=== PATIENT | female | born 1950 | race Caucasian/White ===

== ENCOUNTER → 2018-01-19 | Outpatient (CLI) | payer MEDICARE, OTHER ==
--- NOTE | 2018-01-19 17:02 | RAD ---
Right lower extremity venous Doppler 01/19/2018 6:00 PM Indication: Right leg pain Comparison: None available Technique: Sonographic evaluation of the right lower extremity venous system was performed utilizing grayscale, Doppler and spectral waveform analysis. Findings: Right: There is normal color Doppler, compressibility and spectral analysis involving the common femoral vein, superficial femoral vein, popliteal vein, posterior tibial vein and greater saphenous vein. Impression: No evidence for right lower extremity venous thrombosis.
== END | disposition home or self-care (01) ==
LOC: US 15:48
PROVIDERS: ATTEND Family Medicine
DX: M79.604 Pain in right leg (principal)
CPT/HCPCS: 93971

== ENCOUNTER 2020-06-15 15:03 | Inpatient (IN) | payer MEDICARE, OTHER ==
[~2020-06-15] VITALS: Ht 162.6 cm; Wt 59.4 kg
--- NOTE | 2020-06-15 15:24 | PHYS DOC ---
General Adult EDM: Chief Complaint: NEURO SYMPTOMS/DEFICITS HPI: HPI: 69-year-old female presents with difficulty with speech. The patient is able to make out words, but she cannot answer every question. When asked if she can understand me, she nods yes. She is able to get out some things. She is unable to tell me what time this started. She was able to walk in with her cane which she uses at baseline. She is moving all 4 extremities. No further history is available at this time. Review of Systems: Review of Systems: Constitutional: Denies fever Eyes: Unable to assess HENT: Denies sore throat Respiratory: Denies cough or shortness of breath Cardiovascular: Denies chest pain GI: Denies abdominal pain, nausea, vomiting : Denies dysuria Musculoskeletal: Denies pain Integument: Denies rash Neurologic: Denies headache. Has difficulty speaking Endocrine: Denies polyuria or polydipsia Lymphatic: Denies swollen glands Psychiatric: Denies depression or anxiety Heart Score: Risk Factors: Risk Factors: DM, Current or recent (<one month) smoker, HTN, HLP, family history of CAD, obesity. Risk Scores: Score 0 - 3: 2.5% MACE over next 6 weeks - Discharge Home Score 4 - 6: 20.3% MACE over next 6 weeks - Admit for Clinical Observation Score 7 - 10: 72.7% MACE over next 6 weeks - Early Invasive Strategies Physical Exam: PE: Constitutional: Well developed, well nourished, no acute distress, non-toxic appearance. [] HENT: Normocephalic, atraumatic, bilateral external ears normal, oropharynx moist, no oral exudates, nose normal. [] Eyes: PERRLA, EOMI, conjunctiva normal, no discharge. [] Neck: Normal range of motion, no tenderness, supple, no stridor. [] Cardiovascular: Heart rate regular rhythm, no murmur [] Lungs & Thorax: Bilateral breath sounds clear to auscultation [] Abdomen: Bowel sounds normal, soft, no tenderness, no masses, no pulsatile masses. [] Skin: Warm, dry, no erythema, no rash. [] Back: No tenderness, no CVA tenderness. [] Extremities: No tenderness, no cyanosis, no clubbing, ROM intact, no edema. [] Neurologic: See NIHSS[] Psychologic: Affect normal, judgement normal, mood normal. [] EKG: EKG: [] Radiology/Procedures: Radiology/Procedures: [] Impressions: EXAM: CT Head without IV contrast INDICATION: Reason: speech difficulty / Spl. Instructions: / History: TECHNIQUE: Multi-detector row CT images were obtained of the head without the use of IV contrast. All CT scans performed at this facility utilize dose optimization techniques as appropriate to the exam, including the following: Automated exposure control and adjustment of the mA and/or KV according to patient size (this includes techniques or standardized protocols for targeted exams where dose is indication/reason for exam). COMPARISON: None FINDINGS: BRAIN PARENCHYMA: No evidence of acute intraparenchymal hemorrhage or mass effect. There is loss of rodriguez-white differentiation in the superior posterior left frontal lobe near the precentral gyrus, suggestive of a chronic cortical infarct. More inferiorly, there is some loss of rodriguez-white differentiation in the left frontal lobe near the operculum near the inferior frontal gyrus that could represent a more subacute infarct. VENTRICLES & EXTRA-AXIAL SPACES: Ventricles are within normal limits. Basilar cisterns are patent. No pathologic extra-axial fluid collection or mass. ORBITS: Orbital contents are unremarkable. SINUSES: Visualized paranasal sinuses and mastoid air cells are clear. OSSEOUS & SOFT TISSUES: Calvarium and skull base are intact. IMPRESSION: 1. No acute intracranial hemorrhage or mass effect. 2. Loss of rodriguez-white differentiation in the left frontal lobe suggesting a chronic infarct with a possible acute to subacute component. Consider CTA head in further evaluation. FOR INTERNAL CODING PURPOSES Critical result: Findings discussed with LUKASZ GARCIA at 06/15/2020 3:32 PM. RESULT CODE: (C) Electronically signed by: Shoaib Harrison MD (06/15/2020 3:36 PM) [id number] DICTATED AND SIGNED BY: SHOAIB HARRISON MD DATE: 06/15/20 1536 CC: ZENAIDA ASTUDILLO MD; LUKASZ GARCIA DO ~ EXAM: CT Angiogram of the Head and Neck INDICATION: Reason: stroke, SLURRED SPEECH, CONFUSION / Spl. Instructions: / History: TECHNIQUE: CT images were obtained through the head per standard CTA protocol. Multiplanar and 3D reformatted images were generated from the CT dataset on an independent workstation. All CT scans performed at this facility utilize dose optimization techniques as appropriate to the exam, including the following: Automated exposure control and adjustment of the mA and/or KV according to patient size (this includes techniques or standardized protocols for targeted exams where dose is indication/reason for exam). IV CONTRAST: Administered COMPARISON: None FINDINGS: CTA HEAD: No high-grade large vessel stenosis, proximal or branch vessel occlusion, aneurysm, or vascular malformation. Atherosclerotic plaque in the right cavernous carotid artery is present, resulting in no high-grade stenosis. There is however a paucity of perfused smaller branch vessels in the left parietal region where subtle loss of rodriguez-white differentiation is apparent. ANTERIOR CIRCULATION: Anterior and middle cerebral arteries are widely patent. ANTERIOR COMMUNICATING ARTERY: Patent. POSTERIOR COMMUNICATING ARTERIES: Diminutive and not well seen. POSTERIOR CIRCULATION: Vertebral and basilar arteries are widely patent. Bilateral posterior inferior cerebellar arteries (PICAs), anterior inferior cerebellar arteries (AICAs), and superior cerebellar arteries (SCAs) are visualized and patent. OTHER: No abnormal brain parenchymal enhancement. The paranasal sinuses, mastoid air cells, and tympanic cavities are clear. NECK CTA: AORTA: 2 vessel configuration of arch. No dissection or acute aortic injury. Ectasia of the ascending thoracic aorta to 4.1 cm is present. No hemodynamically significant great vessel origin stenosis. RIGHT CAROTID: Common and internal carotid arteries are widely patent, without evidence of flow limiting stenosis or dissection. LEFT CAROTID: Common and internal carotid arteries are widely patent, without evidence of flow limiting stenosis or dissection. VERTEBRAL ARTERIES: Codominant. No evidence of dissection or flow limiting stenosis. SUBCLAVIAN ARTERIES:Subclavian arteries are patent without stenosis. SOFT TISSUES: Soft tissues are unremarkable. Lung apices show panlobular emphysema affecting the upper lobes the greatest extent. Coronary calcifications are incidentally noted. Where applicable, evaluation of ICA stenosis was performed using NASCET criteria, where the site of greatest stenosis is compared to the diameter of the ICA distal to the carotid bulb. IMPRESSION: 1. Findings suspicious for distal MCA branch vessel occlusion with paucity of perfusing vessels in the left parietal region and associated loss of rodriguez-white differentiation, compatible with an evolving acute to subacute infarct. 2. No significant stenosis in the cervical great vessels with ectasia of the ascending thoracic aorta 4.1 cm and bovine arch configuration noted. FOR INTERNAL CODING PURPOSES Critical result: Findings discussed with LUKASZ GARCIA at 06/15/2020 5:07 PM. RESULT CODE: (C) Electronically signed by: Shoaib Harrison MD (06/15/2020 5:12 PM) [id number] DICTATED AND SIGNED BY: SHOAIB HARRISON MD DATE: 06/15/201711 CC: ZENAIDA ASTUDILLO MD; LUKASZ GARCIA DO ~ Course & Med Decision Making: Course & Med Decision Making Pertinent Labs and Imaging studies reviewed. (See chart for details) I was able to speak with the patient's . He tells me that when the patient woke up this morning around 12:30 PM, she had the disorganized speech. She talks to him, but he cannot understand her. She took a shower on her own. Afterwards, she was trying to talk to him and her speech was still incomprehensible. He encouraged her to go to the emergency room. Her last known well was around 3 AM when she came home and went to bed after work. Patient has had a stroke recently 5 or 6 months ago. He believes she has some residual weakness on one side. Patient had been doing well for the last 4 days. Prior to that, she had been misplacing things and forgetting what they were. The patient's head CT does not show an acute bleed. There are some older findings. See official read for more details. My initial NIH scale was 9. The patient is outside of any window for TPA. I have ordered a CT angiogram of the head and neck. There is some possible distal MCA occlusion. No large vessel occlusion. See official read for more details. No significant stenosis in the neck. I spoke with Dr. Haque and he has advised that the patient be admitted at this facility for observation. I spoke with Dr. Yañez and he has accepted the patient for admission. 52 minutes of critical care time was spent on this patient exclusive of other billable procedures. [] Dragon Disclaimer: Dragon Disclaimer: This electronic medical record was generated, in whole or in part, using a voice recognition dictation system. NIH Stroke Scale: NIH Stroke Scale Response (Comments) Value Level of Consciousness: 0 Alert/Responsive 0 LOC Questions: 2 Answers neither correct 2 LOC Commands: 0 Performs both tasks 0 Best Gaze: 0 Normal 0 Visual: 0 No visual loss 0 Facial Palsy: 0 Normal, symmetrical 0 Motor - Left Arm 0 No drift 0 Motor - Right Arm 1 Drifts but can hold 1 Motor - Left Leg 1 Drift but can hold 1 Motor: Right Leg 1 Drift but can hold 1 Limb Ataxia: 2 Two limbs 2 Sensory: 0 No loss 0 Best Language: 1 Mild to mod aphasia 1 Dysathria: 1 Mild to moderate 1 Extinction and Inattention: 0 Normal 0 Total 9 Departure Departure: Impression: Primary Impression: Ischemic stroke Disposition: ADMITTED INPATIENT Admitting Physician: Yarely Yañez Condition: STABLE Referrals: ZENAIDA ASTUDILLO MD (PCP) Justification of Admission: Justification of Admission: Justification of Admission Dx: Yes Stroke - Ischemic: Stroke-Ischemic LUKASZ GARCIA DO Jun 15, 2020 15:24
--- NOTE | 2020-06-15 15:39 | RAD ---
EXAM: CT Head without IV contrast INDICATION: Reason: speech difficulty / Spl. Instructions: / History: TECHNIQUE: Multi-detector row CT images were obtained of the head without the use of IV contrast. All CT scans performed at this facility utilize dose optimization techniques as appropriate to the exam, including the following: Automated exposure control and adjustment of the mA and/or KV according to patient size (this includes techniques or standardized protocols for targeted exams where dose is indication/reason for exam). COMPARISON: None FINDINGS: BRAIN PARENCHYMA: No evidence of acute intraparenchymal hemorrhage or mass effect. There is loss of rodriguez-white differentiation in the superior posterior left frontal lobe near the precentral gyrus, suggestive of a chronic cortical infarct. More inferiorly, there is some loss of rodriguez-white differentiation in the left frontal lobe near the operculum near the inferior frontal gyrus that could represent a more subacute infarct. VENTRICLES & EXTRA-AXIAL SPACES: Ventricles are within normal limits. Basilar cisterns are patent. No pathologic extra-axial fluid collection or mass. ORBITS: Orbital contents are unremarkable. SINUSES: Visualized paranasal sinuses and mastoid air cells are clear. OSSEOUS & SOFT TISSUES: Calvarium and skull base are intact. IMPRESSION: 1. No acute intracranial hemorrhage or mass effect. 2. Loss of rodriguez-white differentiation in the left frontal lobe suggesting a chronic infarct with a possible acute to subacute component. Consider CTA head in further evaluation. FOR INTERNAL CODING PURPOSES Critical result: Findings discussed with LUKASZ GARCIA at 06/15/2020 3:32 PM. RESULT CODE: (C) Electronically signed by: Dewey Harrison MD (06/15/2020 3:36 PM) [id number]
[2020-06-15 15:46] LABS: HEMOGLOBIN 13.1 g/dL (12.0-15.5); RED BLOOD COUNT 4.43 x10^6/uL (3.50-5.40); RED CELL DISTRIBUTION WIDTH 14.9 % (11.5-14.5); WHITE BLOOD COUNT 8.4 x10^3/uL (4.0-11.0)
[2020-06-15 15:52] LABS: CALCIUM 9.4 mg/dL (8.5-10.1); CREATININE 1.1 mg/dL (0.6-1.0); GFR 49.5; POTASSIUM 3.2 mmol/L (3.5-5.1)
[2020-06-15] MEDS ORDERED: IOHEXOL 350 MG/ML 100 ML VIAL. IV ONE (16:00)
--- NOTE | 2020-06-15 17:15 | RAD ---
EXAM: CT Angiogram of the Head and Neck INDICATION: Reason: stroke, SLURRED SPEECH, CONFUSION / Spl. Instructions: / History: TECHNIQUE: CT images were obtained through the head per standard CTA protocol. Multiplanar and 3D reformatted images were generated from the CT dataset on an independent workstation. All CT scans performed at this facility utilize dose optimization techniques as appropriate to the exam, including the following: Automated exposure control and adjustment of the mA and/or KV according to patient size (this includes techniques or standardized protocols for targeted exams where dose is indication/reason for exam). IV CONTRAST: Administered COMPARISON: None FINDINGS: CTA HEAD: No high-grade large vessel stenosis, proximal or branch vessel occlusion, aneurysm, or vascular malformation. Atherosclerotic plaque in the right cavernous carotid artery is present, resulting in no high-grade stenosis. There is however a paucity of perfused smaller branch vessels in the left parietal region where subtle loss of rodriguez-white differentiation is apparent. ANTERIOR CIRCULATION: Anterior and middle cerebral arteries are widely patent. ANTERIOR COMMUNICATING ARTERY: Patent. POSTERIOR COMMUNICATING ARTERIES: Diminutive and not well seen. POSTERIOR CIRCULATION: Vertebral and basilar arteries are widely patent. Bilateral posterior inferior cerebellar arteries (PICAs), anterior inferior cerebellar arteries (AICAs), and superior cerebellar arteries (SCAs) are visualized and patent. OTHER: No abnormal brain parenchymal enhancement. The paranasal sinuses, mastoid air cells, and tympanic cavities are clear. NECK CTA: AORTA: 2 vessel configuration of arch. No dissection or acute aortic injury. Ectasia of the ascending thoracic aorta to 4.1 cm is present. No hemodynamically significant great vessel origin stenosis. RIGHT CAROTID: Common and internal carotid arteries are widely patent, without evidence of flow limiting stenosis or dissection. LEFT CAROTID: Common and internal carotid arteries are widely patent, without evidence of flow limiting stenosis or dissection. VERTEBRAL ARTERIES: Codominant. No evidence of dissection or flow limiting stenosis. SUBCLAVIAN ARTERIES:Subclavian arteries are patent without stenosis. SOFT TISSUES: Soft tissues are unremarkable. Lung apices show panlobular emphysema affecting the upper lobes the greatest extent. Coronary calcifications are incidentally noted. Where applicable, evaluation of ICA stenosis was performed using NASCET criteria, where the site of greatest stenosis is compared to the diameter of the ICA distal to the carotid bulb. IMPRESSION: 1. Findings suspicious for distal MCA branch vessel occlusion with paucity of perfusing vessels in the left parietal region and associated loss of rodriguez-white differentiation, compatible with an evolving acute to subacute infarct. 2. No significant stenosis in the cervical great vessels with ectasia of the ascending thoracic aorta 4.1 cm and bovine arch configuration noted. FOR INTERNAL CODING PURPOSES Critical result: Findings discussed with LUKASZ GARCIA at 06/15/2020 5:07 PM. RESULT CODE: (C) Electronically signed by: Dewey Harrison MD (06/15/2020 5:12 PM) [id number]
[2020-06-15] MEDS ORDERED: ONDANSETRON PF 4 MG/2 ML VIAL. IVP PRN (17:45)
--- NOTE | 2020-06-15 18:25 | NUR ---
NSG NOTE; ADMISSION ADMIT TO ROOM 105 AT 1805 VIA CART ACCOMP BY EMS PERSONNEL
[2020-06-15 18:29] VITALS: BP 154/77
--- NOTE | 2020-06-15 18:35 | NUR ---
NSG NOTE; DR Agustin MORA CONSULT PAGED WITH DR MORA RETURNING CALL FOR CONSULT
[2020-06-15] MEDS ORDERED: ASPIRIN 325 MG TABLET PO ONE (19:30)
[2020-06-15] MEDS ORDERED: ANASTROZOLE PO (22:08)
[2020-06-15] MEDS ORDERED: FELO10TA4 PO (22:08)
[2020-06-15] MEDS ORDERED: RIVA20TA2 PO (22:08)
[2020-06-15] MEDS ORDERED: ESCI10TA2 PO (22:08)
[2020-06-15] MEDS ORDERED: EZET10TA49 PO (22:08)
[2020-06-15] MEDS ORDERED: POTA-163 PO (22:08)
[2020-06-15] MEDS ORDERED: INDA1.25 PO (22:08)
[2020-06-15] MEDS ORDERED: LORA0.5T21 PO (22:08)
[2020-06-15 22:22] VITALS: BP 147/80
--- NOTE | 2020-06-15 22:29 | CONS ---
DATE OF CONSULTATION: 06/15/2020 NEUROLOGY CONSULTATION REFERRING PHYSICIAN: Dr. Yañez. REASON FOR CONSULTATION: Rule out TIA versus stroke. HISTORY OF PRESENT ILLNESS: This is a 69-year-old right-handed -[place]i female who was admitted through Emergency Room after she was found by her having difficulty speaking and finding words. In ER, the patient seemed to be answering questions, but she had difficulty finding words and complete sentences. The patient denies headaches, visual disturbances, nausea, vomiting, chest pain, shortness of breath or palpitation, dysphagia. Initial nonenhanced head CT scan revealed possible chronic left frontal lobe infarct. However, CT angio of the head revealed evidence of possible subacute or acute infarct in the left MCA distributions and mainly in the posterior left frontal lobe. According to ER physicians, the patient had stroke in the past, but we do not know if she has any residual from that stroke. PAST MEDICAL HISTORY: Significant for stroke as described above. Otherwise, no further information is available at this time. 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 CURRENT HOME MEDICATIONS: None listed. ALLERGIES: No known drug allergies. FAMILY HISTORY: Unobtainable. PHYSICAL EXAMINATION: GENERAL: Well-developed, well-nourished -[place]i female, not in acute distress. She weighs 59.2 kilos. VITAL SIGNS: Blood pressure 154/77, respiratory rate 17, pulse is 57, temperature 97.7, oxygen saturation 99% on room air. HEENT: Normocephalic, atraumatic, otherwise unremarkable. NECK: Supple. Negative for carotid bruit, lymphadenopathy or thyromegaly. LUNGS: Clear to A and P. CARDIOVASCULAR: Regular rate and rhythm, normal S1, S2. There is a 2/6 systolic murmur. ABDOMEN: Soft. Bowel sounds positive. EXTREMITIES: Negative for cyanosis, clubbing or edema. NEUROLOGICAL EXAM: Mental Status: The patient is awake and alert, but she has difficulty finding words and completing sentences with difficulty repetition and naming. Intermittently, the patient sometimes mentions exactly what she wants to say and possible intact comprehension. CRANIAL NERVES: Visual castañeda appeared to be intact. There is no nystagmus. There is no facial motor or sensory deficit. Hearing appeared to be intact bilaterally. The palate is elevated symmetrically. Sternocleidomastoid muscles are powerful bilaterally. The patient shrugs her shoulders symmetrically and protrudes her tongue in the midline without fasciculation or atrophy. MOTOR: No focal muscle bulk was seen. The tone is normal. The strength is 5/5 throughout. SENSORY EXAMINATION: Revealed diminished pinprick and light touch senses over the right upper extremity with sparing the face and left lower extremity. Deep tendon reflexes were symmetric and active without pathologic responses. GAIT: The patient has broad-based steps. Tandem gait is difficult. DIAGNOSTIC DATA: Head CT scan and CT angio of the neck and the head as described above in the history of present illness consistent with; 1. Possible acute or subacute infarct confined to the posterior left frontal lobe. 2. Cardiac murmur. 3. History of old stroke with unknown residual. RECOMMENDATIONS: 1. Start the patient on aspirin at 325 mg daily. 2. The patient may need a Cardiology consult and echocardiogram. 3. Physical and speech therapy. M Patrick MORA MD DR: WESLY/clarence JOB#: [id number] / [id number]
[2020-06-16 05:27] VITALS: BP 148/74
[2020-06-16] MEDS ORDERED: POTASSIUM BICARB 20 MEQ EFFERVESCENT TABLET. FT SCH (07:15)
[2020-06-16] MEDS ORDERED: POTASSIUM CHLORIDE 20 MEQ TABLET.ER. PO ONE ×2 (07:15→13:00)
[2020-06-16 11:23] VITALS: BP 116/72
[2020-06-16] MEDS ORDERED: ASPIRIN 325 MG TABLET PO SCH (13:00)
--- NOTE | 2020-06-16 13:08 | PN ---
DATE: REFERRING PHYSICIAN: Dr. Yañez. SUBJECTIVE: The patient denies any new medical or neurological complaints; however, she continues to have difficulty finding words and completing sentences. OBJECTIVE: GENERAL: Well-developed, well-nourished -[place] female, not in acute distress. VITAL SIGNS: Blood pressure 148/74, respiratory rate 20, pulse is 51, temperature 98, oxygen saturation 100% on room air. HEENT: Normocephalic, atraumatic, otherwise unremarkable. NECK: Supple. Negative for carotid bruit, lymphadenopathy or thyromegaly. LUNGS: Clear to A and P. CARDIOVASCULAR: Regular rate and rhythm, normal S1, S2, soft systolic murmur. ABDOMEN: Soft. Bowel sounds positive. EXTREMITIES: Negative for cyanosis, clubbing or edema. NEUROLOGICAL EXAM: Mental Status: The patient is alert and oriented to herself and situation. Speech is fluent; however, she has difficulty finding words and paraphasia, difficulty with naming. However, her comprehension is intact. Difficulty with repetition. Otherwise unremarkable. Cranial nerves are intact and no focal motor deficit. However, the patient had diminished pinprick and light touch confined to the right upper extremity. Deep tendon reflexes were symmetric and active without pathology responses. Gait: The patient had broad steps with difficulty tandem gait. IMPRESSION: 1. Status post acute stroke, presented with language dysfunction secondary to acute left frontal lobe infarct with paraphasia and difficulty naming and finding words and right upper extremity sensory deficits. 2. Soft cardiac murmur. RECOMMENDATIONS: Await for speech therapy and evaluation for the swallowing function. Start the patient on aspirin suppository and physical therapy along with previous neurological recommendations. M Patrick MORA MD DR: WESLY/clarence JOB#: [id number] / [id number]
[2020-06-16] MEDS ORDERED: ASPI325T8 PO (13:19)
--- NOTE | 2020-06-16 14:01 | DS ---
DATE OF DISCHARGE: HOSPITAL COURSE: The patient was admitted with difficulty talking. She continued to have problem finding words, but otherwise she is fine, she is able to move all extremities without difficulty. She ambulates without assistance. She is able to eat and drink without difficulty and was seen by Dr. Haque and a decision was made to discharge her home with home health to continue with aspirin as well as physical, occupational and speech therapy at home. PHYSICAL EXAMINATION: GENERAL: When I saw her this afternoon, she looked well and was clearly in no apparent respiratory distress, slightly pale, but no jaundice, cyanosis or thyromegaly. No jugular venous distention or limb edema. VITAL SIGNS: Her heart rate was 53, blood pressure 116/72, temperature was 98.1, respiratory rate was 16, and oxygen saturation was 100% on room air. HEAD, EYES, EARS, NOSE AND THROAT: Showed normocephalic, atraumatic. NECK: Supple. HEART: Showed normal first and second heart sounds. No gallop or murmur. CHEST: Clear to auscultation. No crepitation or rhonchi. ABDOMEN: Distended, soft, nontender. NEUROLOGIC: She is awake, alert, though had difficulty expressing herself, but otherwise all her other cranial nerves intact. She moves extremities without difficulty. She was able to eat and drink and she was evaluated by the speech therapist and was found that she is safe to eat and drink without requiring any specific diet consistency. LABORATORY DATA: Showed a white cell count of 8,400, hemoglobin 13, hematocrit 40, MCV 91, and platelet count of 176,000. Her chemistry showed a serum sodium of 141, potassium 3.2, chloride 103, bicarbonate 29, anion gap of 9, BUN 21, creatinine 1.1, estimated GFR was 49 mL per minute. Her glucose was 90, calcium was 9.4. Her prothrombin time, INR and aPTT are normal. DISCHARGE MEDICATIONS: She was discharged home on aspirin 325 mg once a day, Arimidex 1 mg once a day, escitalopram oxalate 10 mg once a day, Zetia 10 mg once a day, felodipine 10 mg once a day, indapamide 1.25 mg daily, lorazepam 0.5 mg 3 times a day as needed, potassium chloride 20 mEq 3 times a day, and rivaroxaban 20 mg once a day. 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 The patient is scheduled to follow with Dr. Haque as an outpatient. JOAQUIN MIRELES MD DR: GIN/clarence JOB#: [id number] / [id number]
--- NOTE | 2020-06-16 14:03 | HP ---
ADMIT DATE: 06/15/2020 HISTORY OF PRESENT ILLNESS: The patient is a 69-year-old -[place] female patient who presented to the Emergency Room with difficulty with speech. The patient is able to make some words, but she cannot answer any question. She understands what is said, but having difficulty getting her words out. The patient was able to walk-in with her cane without any difficulty. She is moving all extremities without difficulty. She was evaluated. She was able to eat and drink without difficulty. She was extensively investigated in the Emergency Room with lab work as well as imaging studies. She had a CT scan of the head, which basically showed no acute intracranial hemorrhage or mass effect. She has loss of rodriguez-white differentiation in the left frontal lobe, suggestive of chronic infarct with possible acute subacute component. Consider CT angio head for further evaluation. She did have a CT angio of the head and neck with the finding suspicious for distal middle cerebral artery branch vessel occlusion with positive perfusing vessels in the left parietal region with associated loss of rodriguez-white differentiation compatible and evolving acute subacute infarct. No significant stenosis in the cervical great vessels with ectasia of the ascending thoracic aorta at 4.1 cm and a bovine arch configuration noted. The patient was given aspirin and her potassium was low, so was also started on potassium chloride and potassium bicarbonate and was admitted for further evaluation and treatment to consult Dr. Haque. PAST MEDICAL HISTORY: Significant for cerebrovascular accident. PAST SURGICAL HISTORY: Unremarkable. FAMILY HISTORY: Unremarkable. SOCIAL HISTORY: She lives with her . She does not smoke, drink alcohol or recreational drugs. REVIEW OF SYSTEMS: As per history of present illness. ALLERGIES: She has no known drug allergies. MEDICATIONS: She is currently on following medications: She is on rivaroxaban 20 mg once a day, Zetia 10 mg once a day, felodipine 10 mg once a day, escitalopram oxalate 10 mg once a day, lorazepam 0.5 mg 3 times a day, potassium chloride 20 mEq 3 times a day, indapamide 1.25 mg daily, anastrozole 1 mg daily for breast cancer. PHYSICAL EXAMINATION: GENERAL: On arrival to the Emergency Room, she looked well and was clearly in no apparent respiratory distress. No pallor, jaundice or cyanosis. No lymphadenopathy, no thyromegaly. No jugular venous distention. No limb edema. VITAL SIGNS: Her heart rate was 62, blood pressure was 125/91, temperature was 98.1, respiratory rate was 15 and oxygen saturation was 95% on room air. HEAD, EYES, EARS, NOSE AND THROAT: Showed normocephalic, atraumatic. NECK: Supple. CARDIAC: Normal first and second heart sounds. No gallop or murmur. CHEST: Clear to auscultation. No crepitation or rhonchi. ABDOMEN: Distended, soft, nontender. No guarding or rigidity. No organomegaly. All hernial orifice intact. Bowel sounds normal. NEUROLOGIC: She is definitely awake, alert. All her cranial nerves are intact. EXTREMITIES: She moves extremities without difficulty. She definitely has expressive aphasia. LABORATORY DATA: Her lab work on admission showed a white cell count of 8400, hemoglobin 13, hematocrit 40, MCV 91, and platelet count of 176,000. Her chemistry showed a serum sodium 141, potassium 3.2. Her chloride was 103, bicarbonate 29, anion gap of 9, BUN 21, creatinine 1.1, estimated GFR was 49 mL per minute. Her glucose was 90, calcium was 9.4. Her white cell count was 8400, hemoglobin 13, hematocrit 40, MCV 91, and platelet count of 176,000. Her prothrombin time, INR and APTT are all within normal range. CT scan of the head showed that the patient has no evidence of acute intraparenchymal hemorrhage or mass effect. There is loss of rodriguez-white differentiation in the superior posterior left frontal lobe near the precentral gyrus suggestive of chronic cortical infarct. More inferiorly, there is some loss of rodriguez-white differentiation in the left frontal lobe near the operculum, near the inferior frontal gyrus that could represent some more subacute infarct. Ventricles and extraaxial spaces are within normal limits. Basilar cisterns are patent. No pathological extraaxial fluid collection or masses. The orbital contents are unremarkable. Visualized paranasal sinuses and mastoid air cells are clear. Osseous and soft tissues calvarium and skull base are intact. ASSESSMENT AND PLAN: The patient was admitted and started on aspirin and we did consult Dr. Haque for further evaluation and treatment, also we consulted Physical and Occupational Therapy as well as speech therapy. IMPRESSION: 1. The patient was admitted with new onset of expressive aphasia. 2. 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 She has hypertension, hyperlipidemia, breast cancer, although, the patient was unable to give us any useful information whether she has AFib and/or DVT or PE as she is on rivaroxaban. JOAQUIN MIRELES MD DR: GIN/clarence JOB#: [id number] / [id number]
--- NOTE | 2020-06-16 14:20 | NUR ---
NURSING NOTE LIPITOR LIPITOR CALLED INTO [facility]. LEFT MESSAGE FOR PT . KAMILA LUX.
--- OUTSIDE RECORDS SUMMARY | 2020-06-16 14:22 | XMS REPORT | Patient Health Record ---
Author Author [facility] Healthcare Physician S [facility] Organization [facility] Address Unknown Phone Unavailable Care Team Providers Care Grants Director Name Role Phone JANETH LUA Unavailable [phone] PROBLEMS Type Condition ICD9-CM Code [id number] Code Onset Dates Condition S tatus SNOMED Code Notes Problem Benign essential HTN I10 Active [id number] ALLERGIES No Known Allergies ENCOUNTERS from 1950 to 2020-06-16 Encounter Location Date Provider Diagnosis [facility] [address] [place], [place] [id number] Jul, JANETH LUA Pain in right leg M79.604 an d Pain of left leg M79.605 [facility] [address] [place], [place] [id number] Jun, JANETH LUA [facility] [address] [place] [address] Jun, JANETH LUA Deep vein thrombosis (DVT) I 82.409 and Benign essential HTN I10 IMMUNIZATIONS No Information SOCIAL HISTORY Tobacco Use: Social History Observation Description Date Details (start date - stop date) Former Smoker Sex Assigned At : Social History Observation Description Sex Assigned At Unknown Tobacco Questionnaire: Question Answer Notes Are you a: former smoker How long has it been since you last smoked? 1-3 months REASON FOR REFERRAL from 1950 to 2020-06-16 Reason CCD Referring Provider First Name SHONDA Referring Provider Last Name RADHA Referring Provider Specialty Neurology Referring Provider email [email or web address] Referred Provider N/A, [email or web address] VITAL SIGNS from 1950 to 2020-06-16 Height 5ft 4in in Jun, Weight 172 lbs Jun, BMI 29.52 kg/m2 Jun, Oximetry 98 % Jun, Blood pressure systolic 130 mm Hg Jun, Blood pressure diastolic 80 mm Hg Jun, MEDICATIONS Medication SIG (Take, Route, Frequency, Duration) Start Date En d Date Status felodipine 2.5 mg 1 tab(s) orally once a day Active Xarelto 10 mg 1 tab(s) orally once a day Active INDAPAMIDE 1.25 mg 1 tab(s) orally once a day (in the morning) Active Potassium Gluconate Anhydrous Active PROCEDURES No Information RESULTS No Results REASON FOR VISIT 08/06 YARIEL AND DOPPLER RESULTS CALL, NPT Referral Dr. Newton - Possible Nish ous Surgical Intervention MEDICAL (GENERAL) HISTORY Type Description Date Medical History Hypertension Surgical History Foot Surgery Hospitalization History See Above Goals Section No Information Health Concerns No Information MEDICAL EQUIPMENT No Information MENTAL STATUS No Information FUNCTIONAL STATUS No Information ASSESSMENTS Encounter Date Diagnosis Notes Jun, Benign essential HTN (ICD-10 - I10) Jun, Deep vein thrombosis (DVT) (ICD-10 - I82 .409) Jul, Pain of left leg (ICD-10 - M79.605) Jul, Pain in right leg (ICD-10 - M79.604) PLAN OF TREATMENT Treatment Notes Assessment Notes Clinical Notes Deep vein thrombosis (DVT) -Her deep vein thrombosis o n the right lower extremity is of unclear etiology. She does not carry a diagnosis of cancer nor did she have any trauma to that area. We will obtain records from Dr. Sandoval her PCP as well as from her ER visit to [facility]. Continue her anti-regulation at this time. We will repeat arterial and venous Doppler studies and determine if any significant reflux is noted. At this time she obviously has no contraindication to knee surgery except that she is on anticoagulation. We'll follow-up after review of outside hospital records and discussion with Dr. Sandoval. Treatment Notes Test Name Order Date US Arterial dopplers w velocity, bilateral 2020-06-16 US Arterial dopplers w velocity, bilateral 2020-06-16 US Venous doppler & reflux study, bilateral 2020-06-16 Referrals Referral Date Details CCD Insurance Providers Payer Name Payer Address Payer Phone Insured Name Patient Relati onship to Insured Coverage Start Date Coverage End Date Medicare MISTY Kacey Salomon [address] [facility] [phone] Maryellen Mayers
--- NOTE | 2020-06-16 14:27 | NUR ---
NURSING NOTE DISCHARGE PT DISCHARGED HOME VIA WHEELCHAIR, WRITTEN AND VERBAL DISCHARGE INSTRUCTIONS GIVEN TO PT AND . PT SCRIPT FOR LIPITOR CALLED INTO [facility]. NO COMPLICATIONS. KAMILA LUX.
== END 2020-06-16 14:33 | disposition home health service (06) | DRG 66 ==
LOC: ER 15:03 → 1 SOUTH 18:01
PROVIDERS: ADMIT Internal Medicine; ATTEND Internal Medicine
DX: I63.9 Cerebral infarction, unspecified (principal); I10 Essential (primary) hypertension; R47.01 Aphasia; E78.5 Hyperlipidemia, unspecified; R01.1 Cardiac murmur, unspecified; R47.02 Dysphasia; C50.919 Malignant neoplasm of unspecified site of unspecified female breast; Z86.73 Personal history of transient ischemic attack (TIA), and cerebral infarction without residual deficits
CPT/HCPCS: 36415; 70450; 70496; 70498; 80048; 80061; 82947; 85027; 85610; 85730; Q9967; 92610; 97116; 97535; 99291-25

== ENCOUNTER → 2020-06-28 | Outpatient (CLI) | payer MEDICARE ==
[2020-06-16 11:23] VITALS: BP 116/72
[~2020-06-28] MED LIST: ANASTROZOLE PO; ASPI325T8 PO; ESCI10TA2 PO; EZET10TA49 PO; FELO10TA4 PO; INDA1.25 PO; LORA0.5T21 PO; POTA-163 PO; RIVA20TA2 PO
--- NOTE | 2020-06-28 14:25 | RAD ---
INDICATION: Reason: PAIN IN LEFT ARM / Spl. Instructions: / History: COMPARISON: None. TECHNIQUE: Grayscale, color and doppler ultrasound images were obtained of the left upper extremity venous vasculature. No thrombus identified in the internal jugular, subclavian, axillary, brachial, basilic, cephalic, radial or ulnar veins. IMPRESSION: 1. No thrombus identified in deep venous system of left upper extremity. Electronically signed by: Mauro Guillen MD (06/28/2020 2:22 PM) [id number]
--- NOTE | 2020-06-28 14:37 | RAD ---
UPPER EXT ARTERIAL LEFT History: Left arm pain Comparison: None. Findings: Multiple grayscale, color, duplex spectral analysis waveform images of the left lower extremity arteries are submitted. No significant stenosis or vessel occlusion is demonstrated. No sonographic abnormality is demonstrated at site of concern. Velocities in centimeters per second are as follows: Proximal subclavian 94 Distal subclavian 32 Axillary 66 Proximal brachial 89 Mid brachial 78 Distal brachial 81 Proximal radial 50 Distal radial 31 Proximal ulnar 60 Distal ulnar 70 Impression: 1. No significant stenosis or vessel occlusion is demonstrated. Electronically signed by: Chris Mathews MD (06/28/2020 2:34 PM) [id number]
== END | disposition home or self-care (01) ==
LOC: US 13:20
PROVIDERS: ATTEND Family Medicine
DX: M79.602 Pain in left arm (principal)
CPT/HCPCS: 93931; 93971

== ENCOUNTER 2021-02-06 15:22 | Emergency (ER) | payer MEDICARE, OTHER ==
[~2021-02-06] VITALS: Ht 162.6 cm; Wt 59.4 kg
[~2021-02-06 15:22] MED LIST changes: -ESCI10TA2 PO; +ESCI10TA90 PO
--- NOTE | 2021-02-06 15:57 | EKG ---
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
[2021-02-06 16:07] LABS: BASO % 0 % (0-3); EOS % 0 % (0-3); HEMATOCRIT 36.2 % (36.0-47.0); HEMOGLOBIN 11.5 g/dL (12.0-15.5); LYMPH # 1.1 x10^3/uL (1.0-4.8); LYMPH % 13 % (24-48); MEAN CORPUSCULAR HEMOGLOBIN 27 pg (25-35); MEAN CORPUSCULAR HGB CONC 32 g/dL (31-37); MEAN CORPUSCULAR VOLUME 85 fL (79-100); MONO # 0.6 x10^3/uL (0.0-1.1); MONO % 7 % (0-9); NEUT # 6.7 x10^3uL (1.8-7.7); NEUT % 79 % (31-73); PLATELET COUNT 198 x10^3/uL (140-400); RED BLOOD COUNT 4.27 x10^6/uL (3.50-5.40); RED CELL DISTRIBUTION WIDTH 27.7 % (11.5-14.5); WHITE BLOOD COUNT 8.4 x10^3/uL (4.0-11.0)
[2021-02-06 16:14] LABS: CALCIUM 9.4 mg/dL (8.5-10.1); GFR 66.7; POTASSIUM 3.6 mmol/L (3.5-5.1)
[2021-02-06 16:20] LABS: ALBUMIN 3.7 g/dL (3.4-5.0); ALBUMIN/GLOBULIN RATIO 1.3 (1.0-1.7); TOTAL BILIRUBIN 0.2 mg/dL (0.2-1.0); TOTAL PROTEIN 6.6 g/dL (6.4-8.2)
--- NOTE | 2021-02-06 16:38 | RAD ---
EXAMINATION: CT HEAD/BRAIN WO (CT HEAD WITHOUT IV CONTRAST) CLINICAL HISTORY: Weakness, headache TECHNIQUE: Serial axial images without IV contrast were obtained from the vertex to the foramen magnu m. CT Dose Reduction Employed: One or more of the following individualized dose reduction techniques wer e utilized for this examination: 1. Automated exposure control 2. Adjustment of the mA and/or kV ac cording to patient size 3. Use of iterative reconstruction technique. COMPARISON: CT head 06/15/2020 FINDINGS: Acute Change: No evidence of an acute infarct or other acute parenchymal process. Hemorrhage: No evidence of acute intracranial hemorrhage. Mass Lesion/Mass Effect: No evidence of intracranial mass or extraaxial fluid collection. No signific ant mass effect. Chronic Change: Interval development of bandlike encephalomalacia in the posterior left frontal lobe at site of previously noted infarct. Atherosclerotic calcification of the bilateral carotid siphons. Parenchyma: Mild generalized volume loss. Parenchyma otherwise within normal limits for age. Ventricles: Ventricular enlargement concordant with degree of parenchymal volume loss. Paranasal Sinuses and Skull Base: Visualized paranasal sinuses clear. Visualized skull base and soft tissues unremarkable. IMPRESSION: No evidence of acute intracranial abnormality. Development of encephalomalacia at site of prior infarct in the posterior left frontal lobe. Electronically signed by: Andres Cabrera DO (02/06/2021 4:35 PM) [id number]
--- NOTE | 2021-02-06 17:13 | PHYS DOC ---
Past History Past Medical History: Hypertension, Stroke, Other Additional Past Medical Histor: BREAST CANCER (MESSI HANSEN MD) Past Surgical History: Other Additional Past Surgical Histo: BREAST (MESSI HANSEN MD) Alcohol Use: Sober (MESSI HANSEN MD) Adult General Chief Complaint Chief Complaint: NEURO SYMPTOMS/DEFICITS [facility] HPI Patient is a 70F with a past medical history of CVA and encephalopathy with chronic dysarthria secondary to her prior stroke now presenting emergency department complaint of new onset of left lower extremity weakness. Patient states this started yesterday morning spontaneously without any injury or other associated symptoms. Patient states that could do it today but is improved since arrival to the emergency department. Denies any fever, chills or nausea vomiting, dizziness or lightheadedness. Denies any chest pain or shortness breath. (MESSI HANSEN MD) Review of Systems Review of Systems Constitutional: Denies fever or chills [] Eyes: Denies change in visual acuity, redness, or eye pain [] HENT: Denies nasal congestion or sore throat [] Respiratory: Denies cough or shortness of breath [] Cardiovascular: No additional information not addressed in HPI [] GI: Denies abdominal pain, nausea, vomiting, bloody stools or diarrhea [] : Denies dysuria or hematuria [] Musculoskeletal: Denies back pain or joint pain [] Integument: Denies rash or skin lesions [] Neurologic: Denies headache, focal weakness or sensory changes [] Endocrine: Denies polyuria or polydipsia [] All other systems were reviewed and found to be within normal limits, except as documented in this note. (MESSI HANSEN MD) Allergies Allergies Allergies Coded Allergies Type Severity Reaction Last Updated Verified No Known Drug Allergies 06/15/20 No (MESSI HANSEN MD) Physical Exam Physical Exam Constitutional: Well developed, well nourished, no acute distress, non-toxic appearance. [] HENT: Normocephalic, atraumatic, bilateral external ears normal, oropharynx moist, no oral exudates, nose normal. [] Eyes: PERRLA, EOMI, conjunctiva normal, no discharge. [] Neck: Normal range of motion, no tenderness, supple, no stridor. [] Cardiovascular:Heart rate regular rhythm, no murmur [] Lungs & Thorax: Bilateral breath sounds clear to auscultation [] Abdomen: Bowel sounds normal, soft, no tenderness, no masses, no pulsatile masses. [] Skin: Warm, dry, no erythema, no rash. [] Back: No tenderness, no CVA tenderness. [] Extremities: No tenderness, no cyanosis, no clubbing, ROM intact, no edema. [] Neurologic: Alert and oriented X 3, normal motor function, normal sensory function, no focal deficits noted. [] Psychologic: Affect normal, judgement normal, mood normal. [] (MESSI HANSEN MD) Current Patient Data Vital Signs Vital Signs Date Time Temp Pulse Resp B/P (MAP) Pulse Ox O2 Delivery O2 Flow Rate FiO2 02/06/21 15:42 98.4 75 24 120/66 (84) 97 Room Air Lab Results Laboratory Tests Test 02/06/21 15:45 White Blood Count 8.4 x10^3/uL (4.0-11.0) Red Blood Count 4.27 x10^6/uL (3.50-5.40) Hemoglobin 11.5 g/dL (12.0-15.5) L Hematocrit 36.2 % (36.0-47.0) Mean Corpuscular Volume 85 fL (79-100) Mean Corpuscular Hemoglobin 27 pg (25-35) Mean Corpuscular Hemoglobin Concent 32 g/dL (31-37) Red Cell Distribution Width 27.7 % (11.5-14.5) H Platelet Count 198 x10^3/uL (140-400) Neutrophils (%) (Auto) 79 % (31-73) H Lymphocytes (%) (Auto) 13 % (24-48) L Monocytes (%) (Auto) 7 % (0-9) Eosinophils (%) (Auto) 0 % (0-3) Basophils (%) (Auto) 0 % (0-3) Neutrophils # (Auto) 6.7 x10^3uL (1.8-7.7) Lymphocytes # (Auto) 1.1 x10^3/uL (1.0-4.8) Monocytes # (Auto) 0.6 x10^3/uL (0.0-1.1) Eosinophils # (Auto) 0.0 x10^3/uL (0.0-0.7) Basophils # (Auto) 0.0 x10^3/uL (0.0-0.2) Platelet Estimate Pending Prothrombin Time 13.9 SEC (9.4-11.4) H Prothrombin Time INR 1.4 (0.9-1.1) H Activated Partial Thromboplast Time 31 SEC (23-33) Sodium Level 146 mmol/L (136-145) H Potassium Level 3.6 mmol/L (3.5-5.1) Chloride Level 109 mmol/L (98-107) H Carbon Dioxide Level 26 mmol/L (21-32) Anion Gap 11 (6-14) Blood Urea Nitrogen 19 mg/dL (7-20) Creatinine 1.0 mg/dL (0.6-1.0) Estimated GFR (Cockcroft-Gault) 66.7 BUN/Creatinine Ratio 19 (6-20) Glucose Level 119 mg/dL (70-99) H Calcium Level 9.4 mg/dL (8.5-10.1) Total Bilirubin 0.2 mg/dL (0.2-1.0) Aspartate Amino Transferase (AST) 24 U/L (15-37) Alanine Aminotransferase (ALT) 28 U/L (14-59) Alkaline Phosphatase 81 U/L (46-116) Troponin I Quantitative 0.030 ng/mL (0-0.055) Total Protein 6.6 g/dL (6.4-8.2) Albumin 3.7 g/dL (3.4-5.0) Albumin/Globulin Ratio 1.3 (1.0-1.7) (MESSI HANSEN MD) EKG EKG [] (MESSI HANSEN MD) Radiology/Procedures Radiology/Procedures EXAMINATION: CT HEAD/BRAIN WO (CT HEAD WITHOUT IV CONTRAST) CLINICAL HISTORY: Weakness, headache TECHNIQUE: Serial axial images without IV contrast were obtained from the vertex to the foramen magnum. CT Dose Reduction Employed: One or more of the following individualized dose reduction techniques were utilized for this examination: 1. Automated exposure control 2. Adjustment of the mA and/or kV according to patient size 3. Use of iterative reconstruction technique. COMPARISON: CT head 06/15/2020 FINDINGS: Acute Change: No evidence of an acute infarct or other acute parenchymal process. Hemorrhage: No evidence of acute intracranial hemorrhage. Mass Lesion/Mass Effect: No evidence of intracranial mass or extraaxial fluid collection. No significant mass effect. Chronic Change: Interval development of bandlike encephalomalacia in the posterior left frontal lobe at site of previously noted infarct. Atherosclerotic calcification of the bilateral carotid siphons. Parenchyma: Mild generalized volume loss. Parenchyma otherwise within normal reddy its for age. Ventricles: Ventricular enlargement concordant with degree of parenchymal volume loss. Paranasal Sinuses and Skull Base: Visualized paranasal sinuses clear. Visualized skull base and soft tissues unremarkable. IMPRESSION: No evidence of acute intracranial abnormality. Development of encephalomalacia at site of prior infarct in the posterior left frontal lobe. Electronically signed by: Andres Cabrera DO (02/06/2021 4:35 PM) [id number] (MESSI HANSEN MD) Heart Score C/O Chest Pain: No Risk Factors: Risk Factors: DM, Current or recent (<one month) smoker, HTN, HLP, family history of CAD, obesity. Risk Scores: Risk Factors: DM, Current or recent (<one month) smoker, HTN, HLP, family history of CAD, obesity. (MESSI HANSEN MD) Course & Med Decision Making Course & Med Decision Making Pertinent Labs and Imaging studies reviewed. (See chart for details) 70 female presented with new onset of left lower extremity weakness that does raise concern for stroke or TIA. Patient is on Xarelto at home. There is a concern recurrence. CT of the head does not demonstrate any bleed. Discussed case with the neurologist on-call who we are anticipating admission for TIA work-up. (MESSI HANSEN MD) Course & Med Decision Making I assumed care of patient after comprehensive signout by off going physician. I reviewed entirety of ER work-up thus far. I personally evaluated patient and repeated certain aspects of history and physical exam which is consistent with initial providers note Dysarthria appears at baseline without any other gross neurologic findings; nonetheless, patient does have CT imaging findings and for encephalomalacia over prior infarct site and MRI is recommended. Dr. Mclean, hospitalist at [facility] was contacted and case discussed at length, he agreed need for admission for MRI and likely neuro consultation in the morning I updated patient on proposed plan of care that involved hospital transport to [facility] for admission, she was amenable. All questions and concerns addressed prior to ER transportation via EMS for admission (AMIRA ALBERTS DO) [place] Disclaimer Dragon Disclaimer This electronic medical record was generated, in whole or in part, using a voice recognition dictation system. (MESSI HANSEN MD) Departure Departure: Impression: Primary Impression: TIA (transient ischemic attack) Additional Impressions: History of CVA (cerebrovascular accident) Dysarthria as late effect of stroke Disposition: 02 DC/TRF OTHER SHORT TERM HOS ([facility]) Admitting Physician: Other (Dr. Mclean) (AMIRA ALBERTS DO) Condition: STABLE Referrals: ZENAIDA ASTUDILLO MD (PCP) Problem Qualifiers MESSI HANSEN MD Feb 06, 2021 17:13 AMIRA ALBERTS DO Feb 07, 2021 05:27
[2021-02-06] MEDS ORDERED: ACETAMINOPHEN 500 MG TABLET PO ONE (18:30)
[2021-02-06 19:01] LABS: BARBITURATES NEG (NEG); BENZODIAZEPINES NEG (NEG); CANNABINOIDS NEG (NEG); COCAINE NEG (NEG); METHADONE NEG (NEG); OPIATES NEG (NEG); PHENCYCLIDINE NEG (NEG)
[2021-02-06 19:04] LABS: AMPHETAMINE/METHAMPHETAMINE NEG (NEG)
[2021-02-06 19:10] LABS: BILIRUBIN,URINE NEG (NEG); CLARITY,URINE CLEAR; COLOR,URINE YELLOW; GLUCOSE,URINE NEG (NEG); NITRITE,URINE NEG (NEG); UROBILINOGEN,URINE 0.2 mg/dL (0.2 mg/dL); WBC,URINE RARE /HPF (0-4)
[2021-02-06 19:11] LABS: BACTERIA,URINE 0 /HPF (0-FEW); SQUAMOUS EPITHELIAL CELL,UR OCC /LPF
[2021-02-06 19:43] LABS: ANISOCYTOSIS MOD; HYPOCHROMIA SLIGHT; MICROCYTOSIS SLIGHT; OVALOCYTES FEW; PLT ESTIMATE ADEQUATE (ADEQUATE); SCHISTOCYTES FEW; TARGET CELLS OCC
[2021-02-07 01:30] VITALS: BP 143/55
== END 2021-02-07 01:45 | disposition short-term general hospital (02) ==
LOC: ER 15:22
DX: G45.9 Transient cerebral ischemic attack, unspecified (principal); I69.322 Dysarthria following cerebral infarction; I10 Essential (primary) hypertension; Z86.73 Personal history of transient ischemic attack (TIA), and cerebral infarction without residual deficits
CPT/HCPCS: 36415; 70450; 80053; 80307; 81001; 84484; 85025; 85610; 85730; 93005; 99285

== ENCOUNTER 2021-08-05 22:18 | Emergency (ER) | payer MEDICARE, OTHER ==
--- NOTE | 2021-08-06 00:14 | PHYS DOC ---
Past History Past Medical History: Hypertension, Stroke, Other Additional Past Medical Histor: BREAST CANCER Past Surgical History: Other Additional Past Surgical Histo: BREAST Alcohol Use: Sober Adult General Chief Complaint Chief Complaint: ANKLE PROBLEM HPI HPI Patient is a 70-year-old female who presents to the emergency department with ankle pain after twisting her ankle and falling at home just before coming in the emergency department. States that it does hurt, 8 out of 10, sharp in nature and is unable to walk on it. States she was mess around and trying on her she is at home when she tripped. Denies any other injuries. Review of Systems Review of Systems Review of systems otherwise unremarkable except noted in HPI Allergies Allergies Allergies Coded Allergies Type Severity Reaction Last Updated Verified No Known Drug Allergies 06/15/20 No Physical Exam Physical Exam Constitutional: Well developed, well nourished, no acute distress, non-toxic appearance. [] HENT: Normocephalic, atraumatic, bilateral external ears normal, oropharynx moist, no oral exudates, nose normal. [] Eyes:conjunctiva normal, no discharge. [] Neck: Normal range of motion, no tenderness, supple, no stridor. [] Cardiovascular:Heart rate regular rhythm, no murmur [] Lungs & Thorax: Bilateral breath sounds clear to auscultation [] Back: No tenderness, Extremities: Right ankle with significant tenderness and some noticeable swelling and probable deformity, neurovascular exam intact Neurologic: Alert and oriented X 3, no focal deficits noted. [] Psychologic: Affect normal, judgement normal, mood normal. [] EKG EKG [] Radiology/Procedures Radiology/Procedures [] Heart Score C/O Chest Pain: No Risk Factors: Risk Factors: DM, Current or recent (<one month) smoker, HTN, HLP, family history of CAD, obesity. Risk Scores: Risk Factors: DM, Current or recent (<one month) smoker, HTN, HLP, family history of CAD, obesity. Course & Med Decision Making Course & Med Decision Making Patient is a 70-year-old female who presents to the emergency department with ankle injury Vital signs notable for mild tachycardia and hypertension. Physical exam noted above. Patient given pain medicine and ice pack. Imaging notable for trimalleoli fracture. Physical exam showing no tenting, no significant swelling, only minor tenderness, no real deformities. Neurovascular exam intact. Placed in a short leg posterior splint with a stirrup. Discussed with family pain management at home. Advised this is a nonweightbearing fracture and should use her walker at all times. Advised to follow-up in the morning with primary care physician also advised to follow-up in the morning with orthopedic surgery. Discussed patient with o rthopedic surgery at [place] Dr. Arcos to make aware that she would be calling in the morning and needed to be seen this week in clinic. Gave strict return precautions to the family. Family grateful, verbalized understanding and agreed with plan of discharge. Dragon Disclaimer Dragon Disclaimer This electronic medical record was generated, in whole or in part, using a voice recognition dictation system. Departure Departure: Impression: Primary Impression: Trimalleolar fracture Disposition: HOME / SELF CARE / HOMELESS Condition: STABLE Referrals: ZENAIDA ASTUDILLO MD (PCP) Patient Instructions: Trimalleolar Fracture, Ankle, Adult, Displaced (ORIF), Trimalleolar Fracture, Ankle, Adult, Displaced (ORIF), Care After Additional Instructions: Thank you for coming to the emergency department tonight and allowing us to take care of you. Please read all of the attached information carefully to go back over things we discussed. Please use your prescription pain medicine as prescribed and as needed. You can also use ibuprofen as well as you should if you can tolerate this and are not allergic. You can also keep ice on this as it will keep the area cool even in a splint. Please be sure to read the splint care as well. Please call your primary care physician first thing in the morning to update on ED visit and set up a follow-up. Please call [facility] first thing in the morning at [phone] to discuss your ED visit and set up a follow-up this week for reevaluation and discussions with the surgery team for continued evaluation and treatment. Scripts Hydrocodone Bit/Acetaminophen (HYDROCODONE-APAP 5-325 ) 1 Each Tablet 1 TAB PO Q4DAYS PRN for PAIN for 5 Days, #30 TAB 0 Refills Prov: MAXINE STYLES MD 08/06/21 MAXINE STYLES MD Aug 06, 2021 00:14
--- NOTE | 2021-08-06 00:28 | RAD ---
EXAM: 1. Right tibia/fibula 2 views. 2. Right ankle 3 views. HISTORY: Fall, pain. COMPARISON: None. FINDINGS: An oblique fracture of the distal fibula demonstrates 30 degrees angulation of the distal f racture fragment. A medial malleolar fracture is displaced laterally. A small posterior malleolar fra cture fragment is displaced posteriorly. The mortise is disrupted with lateral subluxation and tilt o f the talus. No fractures are appreciated more proximally within the tibia/fibula. 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 Soft tissue swelling is noted about the an kle. There is a small plantar calcaneal spur. Atherosclerotic calcifications are noted. IMPRESSION: 1. Laterally displaced trimalleolar fracture as above. Electronically signed by: Rosa Escalera MD (08/06/2021 12:26 AM) [facility]
[2021-08-06] MEDS ORDERED: MORPHINE SULFATE 4 MG/ML DISP.SYRIN. IM ONE (00:30)
[2021-08-06] MEDS ORDERED: IBUPROFEN 600 MG TABLET. PO ONE (00:30)
[2021-08-06] MEDS ORDERED: HYDR-2155 PO ×2 (01:01→13:17)
== END 2021-08-06 02:00 | disposition home or self-care (01) ==
LOC: ER 22:18
DX: S82.851A Displaced trimalleolar fracture of right lower leg, initial encounter for closed fracture (principal); I10 Essential (primary) hypertension; Z86.73 Personal history of transient ischemic attack (TIA), and cerebral infarction without residual deficits; W18.39XA Other fall on same level, initial encounter; Y93.89 Activity, other specified; Y92.89 Other specified places as the place of occurrence of the external cause; Y99.8 Other external cause status
CPT/HCPCS: 29515; 73590; 73610; 99283; 99284

== ENCOUNTER → 2021-09-04 | Outpatient (CLI) | payer MEDICARE, OTHER ==
[~2021-09-04] MED LIST changes: +HYDR-2155 PO
[2021-09-04 14:36] LABS: BASO % 0 % (0-3); EOS # 0.1 x10^3/uL (0.0-0.7); EOS % 1 % (0-3); HEMATOCRIT 24.3 % (36.0-47.0); HEMOGLOBIN 7.5 g/dL (12.0-15.5); LYMPH % 14 % (24-48); MEAN CORPUSCULAR HEMOGLOBIN 22 pg (25-35); MEAN CORPUSCULAR HGB CONC 31 g/dL (31-37); MEAN CORPUSCULAR VOLUME 71 fL (79-100); MONO # 0.6 x10^3/uL (0.0-1.1); MONO % 8 % (0-9); NEUT # 5.9 x10^3uL (1.8-7.7); NEUT % 77 % (31-73); PLATELET COUNT 281 x10^3/uL (140-400); RED BLOOD COUNT 3.42 x10^6/uL (3.50-5.40); RED CELL DISTRIBUTION WIDTH 18.7 % (11.5-14.5); WHITE BLOOD COUNT 7.7 x10^3/uL (4.0-11.0)
[2021-09-04 15:30] LABS: TARGET CELLS FEW
[2021-09-04 15:31] LABS: HYPOCHROMIA SLIGHT
[2021-09-04 15:32] LABS: PLT ESTIMATE ADEQUATE (ADEQUATE); SCHISTOCYTES FEW
== END ==
LOC: LAB 13:45
PROVIDERS: ATTEND Family Medicine
DX: D50.9 Iron deficiency anemia, unspecified (principal)
CPT/HCPCS: 36415; 85025

== ENCOUNTER → 2021-09-07 | Outpatient (CLI) | payer MEDICARE ==
--- NOTE | 2021-09-07 17:34 | RAD ---
Three-view right ankle study Clinical indications: Follow-up of fracture COMPARISON: August 05, 2021. FINDINGS: Since the previous study, metallic surgical hardware has been placed. There is a lateral me tallic stabilizer plate and multiple screws within the distal right fibula thereby fixating and reduc ing the distal right fibular fracture. 2 metallic screws have been placed obliquely through the dista l right tibia thereby fixating and reducing the fracture of the medial malleolus at the junction with the tibial plafond. 2 metallic horizontal syndesmosis screws are seen extending between the distal f ibula and tibia. The syndesmosis is maintained. Mortise ankle joint is reduced. Disuse osteopenia is apparent. No focal lytic process is apparent. IMPRESSION: ORIF of distal right fibular and tibial fractures. The fracture of the medial malleolus i s still evident today and therefore is not healed. The fracture of the distal right fibula is not see n today and may be healed or it is just obscured by the surgical hardware. Mortise ankle joint is red uced. Electronically signed by: Mark Zeng MD (09/07/2021 5:32 PM) [id number]
== END ==
LOC: RAD 13:33
PROVIDERS: ATTEND Podiatrist
DX: S82.51XD Displaced fracture of medial malleolus of right tibia, subsequent encounter for closed fracture with routine healing (principal); S82.831D Other fracture of upper and lower end of right fibula, subsequent encounter for closed fracture with routine healing; S82.851D Displaced trimalleolar fracture of right lower leg, subsequent encounter for closed fracture with routine healing; X58.XXXD Exposure to other specified factors, subsequent encounter
CPT/HCPCS: 73610

== ENCOUNTER 2021-10-12 09:55 | Emergency (ER) | payer MEDICARE ==
[~2021-10-12] VITALS: Ht 162.6 cm; Wt 63.4 kg
--- NOTE | 2021-10-12 11:15 | EKG ---
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
[2021-10-12] MEDS ORDERED: IOHEXOL 300 MG/ML 75 ML VIAL. IV ONE (11:30)
--- NOTE | 2021-10-12 11:50 | PHYS DOC ---
Past History Past Medical History: Hypertension, Stroke, Other Additional Past Medical Histor: BREAST CANCER (KOLTON CARVALHO APRN) Past Surgical History: Other Additional Past Surgical Histo: BREAST, rigth foot (KOLTON CARVALHO APRN) Alcohol Use: Sober (KOLTON CARVALHO APRN) General Adult EDM: Chief Complaint: SHORTNESS OF BREATH HPI: HPI: Patient is a 71-year-old female who presents to the emergency department today for multiple complaints including shortness of breath, decreased appetite, nausea, vomiting, nonproductive cough, urinary frequency and urgency and diarrhea. Patient reports that her symptoms started Friday after she received an iron infusion at [facility]. Patient is unsure whether her diarrhea is due to her using laxatives. Patient has a history of hypertension and CVA and has stuttering and slurred speech as a residual of that stroke from 2008. Patient denies any fevers, dysuria, flank pain, abdominal pain, chest pain, oxygen use at home. Patient is 92% on room air, otherwise vital signs are stable. (KOLTON CARVALHO APRN) Review of Systems: Review of Systems: Constitutional: See HPI Respiratory: See HPI Cardiovascular: See HPI GI: See HPI : See HPI Musculoskeletal: See HPI I (KOLTON CARVALHO APRN) Current Medications: Current Meds: Current Medications Medications (Trade) Dose Ordered Sig/Whit Start Time Stop Time Status Last Admin Dose Admin Iohexol (Omnipaque 300 Mg/ml) 75 ml 1X ONCE 10/12/21 11:30 10/12/21 11:33 DC (KOLTON CARVALHO APRN) Allergies: Allergies: Allergies Coded Allergies Type Severity Reaction Last Updated Verified No Known Drug Allergies 06/15/20 No (KOLTON CARVALHO APRN) Physical Exam: PE: Constitutional: Well developed, well nourished, no acute distress, non-toxic appearance. [] HENT: Normocephalic, atraumatic, bilateral external ears normal, oropharynx moist, no oral exudates, nose normal. [] Eyes: PERRL, EOMI, conjunctiva normal, no discharge. [] Neck: Normal range of motion, no stridor Cardiovascular:Heart rate regular rhythm, no murmur [] Lungs & Thorax: Bilateral breath sounds clear to auscultation [] Abdomen: Bowel sounds normal, soft, no tenderness, no masses, no pulsatile masses, no active vomiting. [] Skin: Warm, dry, no erythema, no rash. [] Back: No tenderness, no CVA tenderness. [] Extremities: No tenderness, no cyanosis, no clubbing, ROM intact, trace edema BLE. [] Neurologic: Alert and oriented X 3, normal motor function, normal sensory fun ction, slurred/stuttering speech Psychologic: Affect normal, judgement normal, mood normal. [] (KOLTON CARVALHO APRN) Current Patient Data: Labs: Laboratory Tests Test 10/12/21 11:47 10/12/21 11:50 White Blood Count 11.1 x10^3/uL Red Blood Count 4.55 x10^6/uL Hemoglobin 11.0 g/dL Hematocrit 37.3 % Mean Corpuscular Volume 82 fL Mean Corpuscular Hemoglobin 24 pg Mean Corpuscular Hemoglobin Concent 29 g/dL Red Cell Distribution Width 30.7 % Platelet Count 284 x10^3/uL Neutrophils (%) (Auto) 79 % Lymphocytes (%) (Auto) 12 % Monocytes (%) (Auto) 8 % Eosinophils (%) (Auto) 0 % Basophils (%) (Auto) 1 % Neutrophils # (Auto) 8.8 x10^3uL Lymphocytes # (Auto) 1.3 x10^3/uL Monocytes # (Auto) 0.9 x10^3/uL Eosinophils # (Auto) 0.0 x10^3/uL Basophils # (Auto) 0.1 x10^3/uL Platelet Estimate Adequate Polychromasia Mod Poikilocytosis Slight Target Cells Few Ovalocytes Few Schistocytes Few Sodium Level 143 mmol/L Potassium Level 4.3 mmol/L Chloride Level 109 mmol/L Carbon Dioxide Level 23 mmol/L Anion Gap 11 Blood Urea Nitrogen 20 mg/dL Creatinine 0.9 mg/dL Estimated GFR (Cockcroft-Gault) 75.1 BUN/Creatinine Ratio 22 Glucose Level 116 mg/dL Calcium Level 9.3 mg/dL Total Bilirubin 0.3 mg/dL Aspartate Amino Transf (AST/SGOT) 88 U/L Alanine Aminotransferase (ALT/SGPT) 109 U/L Alkaline Phosphatase 160 U/L Troponin I High Sensitivity 749 ng/L Total Protein 6.5 g/dL Albumin 3.1 g/dL Albumin/Globulin Ratio 0.9 Influenza Type A (Rapid) Negative Influenza Type B (Rapid) Negative SARS-CoV-2 Antigen (Rapid) Negative Current Medications Medications (Trade) Dose Ordered Sig/Whit Route PRN Reason Start Time Stop Time Status Last Admin Dose Admin Iohexol (Omnipaque 300 Mg/ml) 75 ml 1X ONCE IV 10/12/21 11:30 10/12/21 11:33 DC 10/12/21 11:30 Sodium Chloride 1,000 ml @ 1,000 mls/hr 1X ONCE IV 10/12/21 12:00 10/12/21 12:59 DC 10/12/21 12:00 Ondansetron HCl (Zofran) 4 mg 1X ONCE IVP 10/12/21 12:00 10/12/21 12:01 DC 10/12/21 12:00 Vital Signs: Vital Signs Date Time Temp Pulse Resp B/P (MAP) Pulse Ox O2 Delivery O2 Flow Rate FiO2 10/12/21 10:19 98.2 89 16 150/89 (109) 93 Room Air (KOLTON CARVALHO APRN) EKG: EKG: EKG performed by ER staff at 1040 shows sinus rhythm with heart rate of 90, QTc of 420, no STEMI read by Dr. Garcia at 1044. [] (KOLTON CARVALHO APRN) Radiology/Procedures: Radiology/Procedures: []PROCEDURE: PORTABLE CHEST 1V XR CHEST 1V CLINICAL INDICATIONS: Shortness of air COMPARISON: May 16, 2011. Findings: Chronic interstitial thickening is seen on the left side. There is a new right lung base consolidative infiltrate with a small right-sided pleural effusion. There is a new interstitial infiltrate on the right side which could be interstitial pulmonary edema. Small left-sided pleural effusion is seen. Therefore, the findings could reflect CHF or fluid overload. Certainly, acute superimposed interstitial pulmonary edema may be present clinically on the left side superimposed upon the chronic interstitial thickening. Heart size is mildly prominent some of which is due to AP magnification. There is a metallic foreign body projected over the left lower chest. No pneumothorax is seen. Upper mediastinum and pulmonary vasculature are unremarkable. IMPRESSION: Radiographic findings may reflect CHF or fluid overload. See discussion above. The consolidative infiltrate within the right lung base may be seen with pneumonia as well. Correlation with clinical findings is needed. There is a metallic foreign body projected over the left lower chest. Cannot determine whether this is inside or outside the patient. The trachea is deviated towards the left side. This could be due to enlarged thyroid gland. Electronically signed by: Willie Zeng MD (10/12/2021 12:07 PM) [id number] DICTATED AND SIGNED BY: WILLIE ZENG MD DATE: 10/12/21 1153 CC: ZENAIDA ASTUDILLO MD; MAIAKOLTON L DIRECTOR OF MANUFACTURING ~MTH0 0 PROCEDURE: CT ABD PELV W/ IV CONTRST ONLY CT abdomen and pelvis with contrast PQRS statement: CT scans at this facility use dose reduction including either automated exposure control, iterative reconstructions, and /or weight based radiation dosing via mA and kV modification when appropriate to reduce radiation dose to as low as reasonably achievable. HISTORY: Nausea, vomiting, diarrhea, decreased appetite, dysuria. Contrast: 75 mL Omnipaque 300 intravenous contrast. Abdomen findings: Mild left pleural effusion. Moderate right pleural effusion. Mild volume loss due to passive atelectasis of the right lower lobe. There are also opacities of the basilar portions of the right middle and lower lobes which could be due to asymmetric atelectasis versus lobar pneumonia. Cardiomegaly. Coronary calcified plaque. The small volume of perihepatic and pericholecystic free fluid as well as right paracolic free fluid. There is extensive periportal edema. Small subcentimeter hypodense lesion right hepatic lobe too small to characterize statistically most likely small cyst or hemangioma a similar small hypodensity of the gallbladder fossa the liver. Left renal upper pole scarring associated with calculi; these could be vascular however there is a 12 mm dense calcification which is presumably a urinary calculus. Mild atrophy of the pancreas. Right kidney, adrenals, spleen unremarkable. No hydronephrosis. There is extensive atheromatous calcified plaque of the aorta and iliac arteries and abdominal arteries. Sigmoid colonic diverticulosis. No obstruction or inflammation GI tract. Limited visualization of the appendix although a small portion of the can be observed extending along the inferior wall the cecum and is air-filled the normal diameter of 4 mm no evidence of appendicitis. No adenopathy. There is mild abdominal wall flank soft tissue edema. Bones are unremarkable. Pelvis findings: Mild dependent pelvic free fluid. Uterus, ovaries, bladder, rectum and bones are unremarkable. IMPRESSION: 1. Moderate right pleural effusion, small left pleural effusion, as well as mild abdominal fluid at the right upper and lower quadrants, and mild pelvic fluid. There is also abdominal and pelvic soft tissue edema. This may indicate anasarca. 2. Perihepatic free fluid and pericholecystic free fluid as well as periportal hypodense edema. This may be due to anasarca. Hepatitis would also be a possibility. Cholangitis given fluid surrounding the portal triads and gallbladder is not excluded. Findings may be further assessed with abdominal sonography or MR imaging. 3. The appendix is negative. 4. Sigmoid colonic diverticulosis. 5. Nonobstructing left renal calculus. Electronically signed by: Dalila Estevez MD (10/12/2021 1:02 PM) [facility] [place] DICTATED AND SIGNED BY: DALILA ESTEVEZ MD DATE: 10/12/21 1254 CC: ZENAIDA ASTUDILLO MD; KOLTON CARVALHO APRN ~MTH0 0 PROCEDURE: CT CHEST WO CONTRAST CHEST CT WITHOUT CONTRAST CLINICAL INDICATIONS: Shortness of air. Lung infiltrate and deviation of trachea seen on chest x-ray. TECHNIQUE: Noncontrast helical CT scanning of the chest was performed. Without IV contrast, the sensitivity to detect organ pathology is decreased. PQRS compliance Statement One or more of the following individualized dose reduction techniques were utilized for this study: 1. Automated exposure control 2. Adjustment of the mA and/or kV according to patient size 3. Use of iterative reconstruction technique COMPARISON: Chest CT dated September 07, 2012. Chest x-ray performed today. FINDINGS: No focal aneurysmal dilatation of the thoracic aorta is seen. Calcified atheromatous disease of the coronary arteries is seen. Cardiomegaly is evident. No pericardial effusion is seen. Precarinal lymph node is seen measuring 19 mm. This measured 7 mm previously. Subcarinal lymph node is seen measuring 15 mm. This area was not seen on the previous study due to patient movement. Evaluation for hilar lymphadenopathy is difficult without IV contrast. No abnormally enlarged axillary lymphadenopathy is seen. The trachea is deviated towards the left side. No thyroid gland mass/enlargement or soft tissue mass is seen. Small left-sided pleural effusion is seen. Mild adjacent compressive atelectasis of the posterior left lower lobe is seen. Moderate-sized right-sided pleural effusion is seen. There is consolidative infiltrate present within the posterior lateral aspects of the right lower lobe and the lateral segment of the right middle lobe. Bilateral upper lobe bullous emphysema is seen. Additional smaller subpleural blebs are seen within both lower lobes. There is a 10 mm left apical irregular nodule which most likely represents a nodular scar. There is adjacent calcified pleural plaque within the left apex. This was not seen previously. There is posterior right upper lobe nodular infiltrate measuring 20 mm in size which was not seen previously. This is adjacent to the major fissure. No pneumothorax is seen. The proximal bronchial tree is patent. No lytic process is seen. The upper abdomen was evaluated on the CT study of the abdomen performed today. IMPRESSION: Bilateral pleural effusions, moderate size on the right and small on the left. Consolidative infiltrates within the right lower lobe and right middle lobe. Pneumonia or aspiration pneumonitis are considerations. Mild compressive atelectasis of the adjacent posterior left lower lobe. Nodular infiltrate within the posterior right upper lobe. Irregular nodule of the left apex measuring 10 mm. Recommend a follow-up chest CT in 3 months. Mediastinal lymphadenopathy most likely reactive. Cardiomegaly. Calcified atheromatous disease of the coronary arteries. Electronically signed by: Willie Zeng MD (10/12/2021 2:12 PM) [id number] DICTATED AND SIGNED BY: WILLIE ZENG MD DATE: 10/12/21 3295 CC: ZENAIDA ASTUDILLO MD; KOLTON CARVALHO APRN ~MTH0 0 (KOLTON CARVALHO APRN) Heart Score: C/O Chest Pain: No Risk Factors: Risk Factors: DM, Current or recent (<one month) smoker, HTN, HLP, family history of CAD, obesity. Risk Scores: Score 0 - 3: 2.5% MACE over next 6 weeks - Discharge Home Score 4 - 6: 20.3% MACE over next 6 weeks - Admit for Clinical Observation Score 7 - 10: 72.7% MACE over next 6 weeks - Early Invasive Strategies (KOLTON CARVALHO APRN) Course & Med Decision Making: Course & Med Decision Making Pertinent Labs and Imaging studies reviewed. (See chart for details) Patient presents to the emergency department for multiple complaints including shortness of breath, nausea vomiting, diarrhea, nonproductive cough and urinary frequency and urgency. Work-up in the ER consisted of Covid and influenza testing, blood work, urinalysis, chest x-ray and CT of abdomen and pelvis. Patient reports that she is taking laxatives which may be causing her diarrhea but she states that she is taking the laxatives because she has not had a normal bowel movement and that now which is watery. Patient treated with IV fluids and nausea medication. Patient had elevated troponin at 749, I spoke to Dr. Larsen [facility] cardiology group and he advised to trend troponins and this was ordered. Patient CBC was unremarkable. Patient had an AST of 88 and ALT of 109. Chest x-ray shows some infiltrates and some tracheal deviation on the left side. CT abdomen and pelvis shows moderate right pleural effusion, small left pleural effusion, mild abdominal fluid in the right upper and lower quadrant and free pelvic fluid, the radiologist read it as anasarca. Patient is also noted to have perihepatic free fluid and pericholecystic periportal hypodense edema. CT of patient's chest was performed and it showed Consolidative infiltrates within the right lower lobe and right middle lobe. Pneumonia or aspiration pneumonitis are considerations. Mild compressive atelectasis of the adjacent posterior left lower lobe. CT of chest also showedNodular infiltrate within the posterior right upper lobe. Irregular nodule of the left apex measuring 10 mm and mediastinal lymphadenopathy. I spoke to Dr. Valdes at [facility] gastroenterology and discussed patient's findings, reported that there was nothing emergent that needed to be performed but he would consult on patient or follow her up outpatient. Patient treated with an antibiotic to treat the pneumonia. Lasix ordered for edema/[place], [place] [id number]. Repeat trop has decreased, cardiology made aware. Patient is requiring supplemental oxygen at this time. I spoke to Dr. Hager that [facility] who agreed to admit the patient under his services for pneumonia, hypoxia and anasarca. (KOLTON CARVALHO APRN) Dragon Disclaimer: Dragalexys Disclaimer: This electronic medical record was generated, in whole or in part, using a voice recognition dictation system. (KOLTON CARVALHO APRN) Attending Co-Sign The patient was seen and interviewed as well as examined at the bedside. The chart was reviewed. The case was discussed. Agree with the plan of care. (LUKASZ GARCIA DO) Departure Departure: Impression: Primary Impression: Pneumonia Qualified Codes: J18.9 - Pneumonia, unspecified organism Additional Impressions: Hypoxia Elevated troponin Anasarca Disposition: 02 SHORT TERM HOSPITAL Condition: STABLE Referrals: ZENAIDA ASTUDILLO MD (PCP) KOLTON CARVALHO APRN Oct 12, 2021 11:50 LUKASZ GARCIA DO Oct 15, 2021 10:48
[2021-10-12 12:00] LABS: BASO # 0.1 x10^3/uL (0.0-0.2); BASO % 1 % (0-3); EOS % 0 % (0-3); HEMATOCRIT 37.3 % (36.0-47.0); LYMPH # 1.3 x10^3/uL (1.0-4.8); LYMPH % 12 % (24-48); MEAN CORPUSCULAR HEMOGLOBIN 24 pg (25-35); MEAN CORPUSCULAR HGB CONC 29 g/dL (31-37); MEAN CORPUSCULAR VOLUME 82 fL (79-100); MONO # 0.9 x10^3/uL (0.0-1.1); MONO % 8 % (0-9); NEUT # 8.8 x10^3uL (1.8-7.7); NEUT % 79 % (31-73); PLATELET COUNT 284 x10^3/uL (140-400); RED BLOOD COUNT 4.55 x10^6/uL (3.50-5.40); RED CELL DISTRIBUTION WIDTH 30.7 % (11.5-14.5); WHITE BLOOD COUNT 11.1 x10^3/uL (4.0-11.0)
[2021-10-12] MEDS ORDERED: IV NORMAL SALINE 1,000ML 1,000 ML IV ONE (12:00)
[2021-10-12] MEDS ORDERED: ONDANSETRON PF 4 MG/2 ML VIAL. IVP ONE ×2 (12:00→16:00)
--- NOTE | 2021-10-12 12:09 | RAD ---
XR CHEST 1V CLINICAL INDICATIONS: Shortness of air COMPARISON: May 16, 2011. Findings: Chronic interstitial thickening is seen on the left side. There is a new right lung base co nsolidative infiltrate with a small right-sided pleural effusion. There is a new interstitial infiltr ate on the right side which could be interstitial pulmonary edema. Small left-sided pleural effusion is seen. Therefore, the findings could reflect CHF or fluid overload. Certainly, acute superimposed i nterstitial pulmonary edema may be present clinically on the left side superimposed upon the chronic interstitial thickening. Heart size is mildly prominent some of which is due to AP magnification. The re is a metallic foreign body projected over the left lower chest. No pneumothorax is seen. Upper med iastinum and pulmonary vasculature are unremarkable. IMPRESSION: Radiographic findings may reflect CHF or fluid overload. See discussion above. The consol idative infiltrate within the right lung base may be seen with pneumonia as well. Correlation with cl inical findings is needed. There is a metallic foreign body projected over the left lower chest. Cannot determine whether this i s inside or outside the patient. The trachea is deviated towards the left side. This could be due to enlarged thyroid gland. Electronically signed by: Mark Zeng MD (10/12/2021 12:07 PM) [id number]
[2021-10-12 12:13] LABS: CALCIUM 9.3 mg/dL (8.5-10.1); CREATININE 0.9 mg/dL (0.6-1.0); GFR 75.1; POTASSIUM 4.3 mmol/L (3.5-5.1)
[2021-10-12 12:19] LABS: ALBUMIN 3.1 g/dL (3.4-5.0); ALBUMIN/GLOBULIN RATIO 0.9 (1.0-1.7); TOTAL BILIRUBIN 0.3 mg/dL (0.2-1.0); TOTAL PROTEIN 6.5 g/dL (6.4-8.2)
[2021-10-12 12:42] LABS: INFLUENZA A PATIENT NEGATIVE (NEGATIVE); INFLUENZA B PATIENT NEGATIVE (NEGATIVE)
[2021-10-12 12:59] LABS: PLT ESTIMATE ADEQUATE (ADEQUATE)
--- NOTE | 2021-10-12 13:05 | RAD ---
CT abdomen and pelvis with contrast PQRS statement: CT scans at this facility use dose reduction including either automated exposure cont rol, iterative reconstructions, and /or weight based radiation dosing via mA and kV modification when appropriate to reduce radiation dose to as low as reasonably achievable. HISTORY: Nausea, vomiting, diarrhea, decreased appetite, dysuria. Contrast: 75 mL Omnipaque 300 intravenous contrast. Abdomen findings: Mild left pleural effusion. Moderate right pleural effusion. Mild volume loss due t o passive atelectasis of the right lower lobe. There are also opacities of the basilar portions of th e right middle and lower lobes which could be due to asymmetric atelectasis versus lobar pneumonia. C ardiomegaly. Coronary calcified plaque. The small volume of perihepatic and pericholecystic free flui d as well as right paracolic free fluid. There is extensive periportal edema. Small subcentimeter hyp odense lesion right hepatic lobe too small to characterize statistically most likely small cyst or he mangioma a similar small hypodensity of the gallbladder fossa the liver. Left renal upper pole scarri ng associated with calculi; these could be vascular however there is a 12 mm dense calcification whic h is presumably a urinary calculus. Mild atrophy of the pancreas. Right kidney, adrenals, spleen unre markable. No hydronephrosis. There is extensive atheromatous calcified plaque of the aorta and iliac arteries and abdominal arteries. Sigmoid colonic diverticulosis. No obstruction or inflammation GI tr act. Limited visualization of the appendix although a small portion of the can be observed extending along the inferior wall the cecum and is air-filled the normal diameter of 4 mm no evidence of append icitis. No adenopathy. There is mild abdominal wall flank soft tissue edema. Bones are unremarkable. Pelvis findings: Mild dependent pelvic free fluid. Uterus, ovaries, bladder, rectum and bones are unr emarkable. IMPRESSION: 1. Moderate right pleural effusion, small left pleural effusion, as well as mild abdominal fluid at t he right upper and lower quadrants, and mild pelvic fluid. There is also abdominal and pelvic soft ti ssue edema. This may indicate anasarca. 2. Perihepatic free fluid and pericholecystic free fluid as well as periportal hypodense edema. This may be due to anasarca. Hepatitis would also be a possibility. Cholangitis given fluid surrounding th e portal triads and gallbladder is not excluded. Findings may be further assessed with abdominal sono graphy or MR imaging. 3. The appendix is negative. 4. Sigmoid colonic diverticulosis. 5. Nonobstructing left renal calculus. Electronically signed by: Dennis Morales MD (10/12/2021 1:02 PM) [facility]
[2021-10-12 13:07] LABS: POIKILOCYTOSIS SLIGHT; TARGET CELLS FEW
[2021-10-12 13:08] LABS: OVALOCYTES FEW; SCHISTOCYTES FEW
[2021-10-12 13:10] LABS: POLYCHROMASIA MOD
--- NOTE | 2021-10-12 14:15 | RAD ---
CHEST CT WITHOUT CONTRAST CLINICAL INDICATIONS: Shortness of air. Lung infiltrate and deviation of trachea seen on chest x-ray. TECHNIQUE: Noncontrast helical CT scanning of the chest was performed. Without IV contrast, the sensi tivity to detect organ pathology is decreased. PQRS compliance Statement One or more of the following individualized dose reduction techniques were utilized for this study: 1. Automated exposure control 2. Adjustment of the mA and/or kV according to patient size 3. Use of iterative reconstruction technique COMPARISON: Chest CT dated September 07, 2012. Chest x-ray performed today. FINDINGS: No focal aneurysmal dilatation of the thoracic aorta is seen. Calcified atheromatous diseas e of the coronary arteries is seen. Cardiomegaly is evident. No pericardial effusion is seen. Precari nal lymph node is seen measuring 19 mm. This measured 7 mm previously. Subcarinal lymph node is seen measuring 15 mm. This area was not seen on the previous study due to patient movement. Evaluation for hilar lymphadenopathy is difficult without IV contrast. No abnormally enlarged axillary lymphadenopa thy is seen. The trachea is deviated towards the left side. No thyroid gland mass/enlargement or soft tissue mass is seen. Small left-sided pleural effusion is seen. Mild adjacent compressive atelectasi s of the posterior left lower lobe is seen. Moderate-sized right-sided pleural effusion is seen. Ther e is consolidative infiltrate present within the posterior lateral aspects of the right lower lobe an d the lateral segment of the right middle lobe. Bilateral upper lobe bullous emphysema is seen. Addit ional smaller subpleural blebs are seen within both lower lobes. There is a 10 mm left apical irregul ar nodule which most likely represents a nodular scar. There is adjacent calcified pleural plaque wit hin the left apex. This was not seen previously. There is posterior right upper lobe nodular infiltra te measuring 20 mm in size which was not seen previously. This is adjacent to the major fissure. No p neumothorax is seen. The proximal bronchial tree is patent. No lytic process is seen. The upper abdom en was evaluated on the CT study of the abdomen performed today. IMPRESSION: Bilateral pleural effusions, moderate size on the right and small on the left. Consolidat maile infiltrates within the right lower lobe and right middle lobe. Pneumonia or aspiration pneumoniti s are considerations. Mild compressive atelectasis of the adjacent posterior left lower lobe. Nodular infiltrate within the posterior right upper lobe. Irregular nodule of the left apex measuring 10 mm. Recommend a follow-up chest CT in 3 months. Mediastinal lymphadenopathy most likely reactive. Cardiomegaly. Calcified atheromatous disease of the coronary arteries. Electronically signed by: Mark Zeng MD (10/12/2021 2:12 PM) [id number]
[2021-10-12] MEDS ORDERED: AZITHROMYCIN 500 MG in IV NORMAL SALINE 250ML 250 ML IV ONE (14:30)
[2021-10-12] MEDS ORDERED: AZITHROMYCIN 500 MG VIAL. IV ONE (14:56)
[2021-10-12] MEDS ORDERED: IV NORMAL SALINE 50ML 50 ML ONE (14:56)
[2021-10-12] MEDS ORDERED: cefTRIAXone SODIUM 1 GM VIAL ONE (14:56)
[2021-10-12] MEDS ORDERED: IV NORMAL SALINE 250ML 250 ML ONE (14:56)
[2021-10-12] MEDS ORDERED: FUROSEMIDE 40 MG/4 ML VIAL IVP ONE (15:30)
[2021-10-12 16:28] LABS: CLARITY,URINE CLEAR; COLOR,URINE AMBER
[2021-10-12 16:29] LABS: BACTERIA,URINE 0 /HPF (0-FEW); BILIRUBIN,URINE SMALL (NEG); GLUCOSE,URINE NEG (NEG); NITRITE,URINE NEG (NEG); RBC,URINE OCC /HPF (0-2); SQUAMOUS EPITHELIAL CELL,UR MANY /LPF; WBC,URINE OCC /HPF (0-4)
[2021-10-12] MEDS ORDERED: HEPARIN for IV BOLUS 10,000 UNIT/10 ML VIAL. IV ONE (17:15)
[2021-10-12 17:18] VITALS: BP 115/76
--- NOTE | 2021-10-12 17:21 | EKG ---
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
[2021-10-12] MEDS ORDERED: ASPIRIN CHEWABLE 81 MG TABLET. PO ONE (17:30)
== END 2021-10-12 18:40 | disposition short-term general hospital (02) ==
LOC: ER 09:55
DX: J18.9 Pneumonia, unspecified organism (principal); R09.02 Hypoxemia; R77.8 Other specified abnormalities of plasma proteins; R60.1 Generalized edema; Z20.822 Contact with and (suspected) exposure to COVID-19
CPT/HCPCS: 36415; 71045; 71250; 74177; 80053; 81001; 83880; 84484; 85025; 87426; 87804; 93005; 96361; 96365; 96366; 96368; 96375; 96376; 99285; C9803; J0456; J0696; J1940; J2405; J7030; J7050; Q9967; U0003

== ENCOUNTER → 2021-10-22 | Outpatient (CLI) | payer MEDICARE ==
[2021-10-12 17:18] VITALS: BP 115/76
--- NOTE | 2021-10-22 17:40 | RAD ---
EXAM: XR EXAM OF ANKLE_RIGHT 3VIEWS 10/22/2021 11:30 AM CLINICAL INDICATION: Weight bearing, follow-up fracture COMPARISON: Right ankle radiograph 09/07/2021 TECHNIQUE: AP, oblique, and lateral views of the right ankle FINDINGS: Lateral plate-screw fixation device traversing a distal fibular fracture is unchanged. The re are 2 screws traversing a medial malleolar fracture and 2 syndesmotic screws, also unchanged. The fractures are unchanged in alignment and less conspicuous. There is irregularity at the posterior mal leolus suspicious for healing nondisplaced fracture. Talar dome is intact. Ankle mortise is symmetric . Mild diffuse osteopenia. Mild soft tissue swelling. IMPRESSION: 1. Healing internally fixed distal fibular and medial malleolar fractures. 2. Healing posterior malleolar fracture. Electronically signed by: Martha Fox MD (10/22/2021 5:38 PM) [id number]
== END ==
LOC: RAD 11:23
PROVIDERS: ATTEND Podiatrist
DX: S82.851D Displaced trimalleolar fracture of right lower leg, subsequent encounter for closed fracture with routine healing (principal); S82.51XD Displaced fracture of medial malleolus of right tibia, subsequent encounter for closed fracture with routine healing; M79.89 Other specified soft tissue disorders; M85.871 Other specified disorders of bone density and structure, right ankle and foot; X58.XXXD Exposure to other specified factors, subsequent encounter
CPT/HCPCS: 73610

== ENCOUNTER → 2021-11-30 | Outpatient (CLI) | payer MEDICARE ==
--- NOTE | 2021-11-30 13:59 | RAD ---
EXAM: Right ankle, 3 views. HISTORY: Pain. COMPARISON: 10/22/2021 FINDINGS: 3 views of the right ankle are obtained. There is internal fixation of medial and lateral m alleolar fractures. The fracture lines are less distinct compared to the prior exam, consistent with progressive interval healing. There is also a healing posterior malleolar fracture. There is disuse o steopenia. There is soft tissue edema. There are vascular calcifications. There is enthesopathy at Ac hilles tendon insertion. IMPRESSION: 1. Progressive healing of trimalleolar fractures and internal fixation of medial and lateral malleola r fractures. 2. Disease osteopenia. Electronically signed by: Lucille Mathews MD (11/30/2021 1:56 PM) [id number]
== END ==
LOC: RAD 13:33
PROVIDERS: ATTEND Podiatrist
DX: S82.851D Displaced trimalleolar fracture of right lower leg, subsequent encounter for closed fracture with routine healing (principal); M85.88 Other specified disorders of bone density and structure, other site; M77.8 Other enthesopathies, not elsewhere classified; X58.XXXD Exposure to other specified factors, subsequent encounter
CPT/HCPCS: 73610

== ENCOUNTER 2022-01-27 17:51 | Emergency (ER) | payer MEDICARE ==
[~2022-01-27] VITALS: Ht 162.6 cm; Wt 58.7 kg
[~2022-01-27 17:51] MED LIST changes: +ATOR40TA59 PO; +FURO40TA4 PO; +METO-239 PO; +OXCA300T19 PO; +SACU1TAB PO; +SPIR25TA5 PO
[2022-01-27] MEDS: methylPREDNISolone SOD SUCC PF 125 MG/2 ML VIAL. IV ONE (18:30)
--- NOTE | 2022-01-27 18:57 | PHYS DOC ---
Past History Past Medical History: Hypertension, Stroke, Other Additional Past Medical Histor: BREAST CANCER (KD WOOTEN APRN) Past Surgical History: Other Additional Past Surgical Histo: BREAST, rigth foot (KD WOOTEN APRN) Alcohol Use: Sober (KD WOOTEN APRN) General Adult EDM: Chief Complaint: COUGH HPI: HPI: Patient is a 71-year-old female who presents with coughing spells and shortness of breath. Denies recent illness. Afebrile. Patient was discharged from [facility] on 12/29 when she was admitted for elevated troponin and chest pain. Patient is unsure if she had stents placed at that time. Patient is denying chest pain. Patient has a history of expressive aphasia and speech is at baseline. "I feel like I am having the symptoms because of my ramsey estive heart failure". Health history consist of CHF, hypertension, CVA. (KD WOOTEN APRN) Review of Systems: Review of Systems: ROS At least 10 ROS systems have been reviewed and are negative except as documented in the HPI. General: Negative except as outlined in HPI above. Skin: Negative except as outlined in HPI above. HEENT: Negative except as outlined in HPI above. Neck: Negative except as outlined in HPI above. Respiratory: Negative except as outlined in HPI above.. Cardiovascular: Negative except as outlined in HPI above. Abdomen: Negative except as outlined in HPI above. : Negative except as outlined in HPI above. Back/MSK: Negative except as outlined in HPI above. Neuro: Negative except as outlined in HPI above. Psych: Negative except as outlined in HPI above. (KD WOOTEN APRN) Current Medications: Current Meds: Current Medications Medications (Trade) Dose Ordered Sig/Whit Start Time Stop Time Status Last Admin Dose Admin Albuterol/ Ipratropium (Duoneb) 3 ml 1X ONCE 01/27/22 18:30 01/27/22 18:40 DC Methylprednisolone Sodium Succinate (SOLU-Medrol 125MG VIAL) 125 mg 1X ONCE 01/27/22 18:30 01/27/22 18:40 DC (KD WOOTEN APRN) Allergies: Allergies: Allergies Coded Allergies Type Severity Reaction Last Updated Verified No Known Drug Allergies 12/30/21 No (KD WOOTEN APRN) Physical Exam: PE: Constitutional: Well developed, well nourished, no acute distress HENT: bilateral external ears normal, oropharynx moist, no oral exudates Eyes: PERRLA,conjunctiva normal, no discharge. Neck: Normal range of motion, no tenderness, no stridor Cardiovascular:Heart rate regular rhythm, no murmur Lungs & Thorax: Bilateral breath sounds coarse throughout Abdomen: Bowel sounds normal, soft, no tenderness, no masses Skin: Warm, dry, no erythema, no rash. Back: No tenderness, no CVA tenderness. Extremities: No tenderness, no clubbing, ROM intact, no edema. Neurologic: Alert and oriented X 3, normal motor function, normal sensory function Psychologic: Affect normal, judgement normal, mood normal. (KD WOOTEN APRN) Current Patient Data: Vital Signs: Vital Signs Date Time Temp Pulse Resp B/P (MAP) Pulse Ox O2 Delivery O2 Flow Rate FiO2 01/27/22 18:10 98.5 56 16 160/78 (105) 98 Room Air (KD WOOTEN APRN) EKG: EKG: Sinus rhythm, heart rate [address] elevation or depression. No STEMI. Read by Dr. Renee. 2025heart rate 59 bpm. No STEMI. Read by Dr. Renee. (KD WOOTEN APRN) Radiology/Procedures: Radiology/Procedures: []EXAMINATION: XR CHEST 1V. HISTORY: 71 years Female Reason: sob COMPARISON: January 01, 2022. Findings: There is a mild right basilar infiltrate.. The the heart size is significantly enlarged. There is a minimal vascular congestion. Suggestion of emphysema in the upper lobes. There is no effusion or pneumothorax. The mediastinum and kobe appear unremarkable. Impression: Mild right basilar infiltrates. Cardiomegaly with minimal congestion. Emphysema. Electronically signed by: Rui Locke MD (01/27/2022 8:35 PM) [id number] (KD WOOTEN APRN) Heart Score: C/O Chest Pain: No Risk Factors: Risk Factors: DM, Current or recent (<one month) smoker, HTN, HLP, family history of CAD, obesity. Risk Scores: Score 0 - 3: 2.5% MACE over next 6 weeks - Discharge Home Score 4 - 6: 20.3% MACE over next 6 weeks - Admit for Clinical Observation Score 7 - 10: 72.7% MACE over next 6 weeks - Early Invasive Strategies (KD WOOTEN APRN) Course & Med Decision Making: Course & Med Decision Making Pertinent Labs and Imaging studies reviewed. (See chart for details) [] 71-year-old female presents with coughing spells and shortness of breath. Patient was recently discharged from [facility] after being admitted for chest pain, shortness of breath, elevated troponin. Patient is denying pain at this time. Work-up in the ER consist of labs, urinalysis, chest x-ray, EKG. EKG shows no ST elevation or depression. No STEMI. Troponin elevated at 1951, BNP 27, 065. Based on visit on 12/29, EF appeared to be 30%. Patient states that she had a heart cath completed but unsure of what the results were at that time. Chest x-ray shows mild right basilar infiltrates. Cardiomegaly with minimal congestion. Emphysema. No changes seen on repeat EKG . spoke with Dr. Miranda regarding patient. Dr. Miranda is excepting patient at [facility] for further evaluation. Dr. Miranda suggested patient be started on heparin drip. Discussed results with patient. Advised patient that she would need to be admitted for further treatment. Patient agrees with admission plan. Patient is still denying pain at this time. Patient placed on 2 L nasal cannula. Patient's O2 dropped down into the mid 80s when she starts having "coughing spells". spoke with Dr. Hager who will be accepting patient at [facility]. (KD WOOTEN APRN) [place] Disclaimer: Dragalexys Disclaimer: This electronic medical record was generated, in whole or in part, using a voice recognition dictation system. (KD WOOTEN APRN) Departure Departure: Impression: Primary Impression: NSTEMI (non-ST elevated myocardial infarction) Additional Impressions: Elevated troponin Acute on chronic combined systolic and diastolic CHF (congestive heart failure) Disposition: 02 SHORT TERM HOSPITAL Condition: STABLE Referrals: ZENAIDA ASTUDILLO MD (PCP) Roger Disclaimer This chart was dictated in whole or in part using Voice Recognition software in a busy, high-work load, and often noisy Emergency Department environment. It may contain unintended and wholly unrecognized errors or omissions. (SARAN RENEE MD) Attending Signature Attending Signature I have participated in the care of this patient and I have reviewed and agree with all pertinent clinical information above including history, exam, and recommendations. (SARAN RENEE MD) KD WOOTEN APRN Jan 27, 2022 18:57 SARAN RENEE MD Jan 27, 2022 23:59
[2022-01-27] MEDS: IPRATRPIUM/ALBUTEROL 0.5/2.5MG 3 ML NEBU. NEB ONE (19:38)
[2022-01-27 19:39] LABS: BASO # 0.1 x10^3/uL (0.0-0.2); BASO % 2 % (0-3); EOS # 0.1 x10^3/uL (0.0-0.7); EOS % 2 % (0-3); HEMATOCRIT 42.5 % (36.0-47.0); HEMOGLOBIN 13.5 g/dL (12.0-15.5); LYMPH # 1.1 x10^3/uL (1.0-4.8); LYMPH % 14 % (24-48); MEAN CORPUSCULAR HEMOGLOBIN 30 pg (25-35); MEAN CORPUSCULAR HGB CONC 32 g/dL (31-37); MEAN CORPUSCULAR VOLUME 95 fL (79-100); MONO # 0.7 x10^3/uL (0.0-1.1); MONO % 8 % (0-9); NEUT % 75 % (31-73); PLATELET COUNT 210 x10^3/uL (140-400); RED BLOOD COUNT 4.48 x10^6/uL (3.50-5.40); RED CELL DISTRIBUTION WIDTH 20.2 % (11.5-14.5); WHITE BLOOD COUNT 8.1 x10^3/uL (4.0-11.0)
[2022-01-27 19:47] LABS: CALCIUM 9.2 mg/dL (8.5-10.1); CREATININE 1.1 mg/dL (0.6-1.0); GFR 59.6; POTASSIUM 4.5 mmol/L (3.5-5.1)
[2022-01-27 20:00] LABS: ALBUMIN 3.3 g/dL (3.4-5.0); ALBUMIN/GLOBULIN RATIO 1.1 (1.0-1.7); TOTAL BILIRUBIN 0.5 mg/dL (0.2-1.0); TOTAL PROTEIN 6.4 g/dL (6.4-8.2)
--- NOTE | 2022-01-27 20:37 | RAD ---
EXAMINATION: XR CHEST 1V. HISTORY: 71 years Female Reason: sob COMPARISON: January 01, 2022. Findings: There is a mild right basilar infiltrate.. The the heart size is significantly enlarged. Th ere is a minimal vascular congestion. Suggestion of emphysema in the upper lobes. There is no effusio n or pneumothorax. The mediastinum and kobe appear unremarkable. Impression: Mild right basilar infiltrates. Cardiomegaly with minimal congestion. Emphysema. Electronically signed by: Rui Locke MD (01/27/2022 8:35 PM) [id number]
[2022-01-27] MEDS: FUROSEMIDE 40 MG/4 ML VIAL IVP ONE (21:01)
[2022-01-27] MEDS: HEPARIN for IV BOLUS 10,000 UNIT/10 ML VIAL. IV ONE (21:03)
[2022-01-27] MEDS: HEPARIN 25,000UTS/250ML PREMIX 250 ML IV PRN (21:05)
--- NOTE | 2022-01-27 21:37 | EKG ---
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
--- NOTE | 2022-01-27 21:42 | EKG ---
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
[2022-01-27 21:58] LABS: COLOR,URINE YELLOW
[2022-01-27 21:59] LABS: BACTERIA,URINE 0 /HPF (0-FEW); CLARITY,URINE CLEAR; GLUCOSE,URINE NEG (NEG); NITRITE,URINE NEG (NEG); SQUAMOUS EPITHELIAL CELL,UR MANY /LPF; UROBILINOGEN,URINE 0.2 mg/dL (0.2 mg/dL); WBC,URINE 0 /HPF (0-4)
[2022-01-27 22:13] VITALS: BP 160/74
== END 2022-01-27 22:19 | disposition short-term general hospital (02) ==
LOC: ER 17:51
DX: I21.4 Non-ST elevation (NSTEMI) myocardial infarction (principal); R77.8 Other specified abnormalities of plasma proteins; I11.0 Hypertensive heart disease with heart failure; I50.43 Acute on chronic combined systolic (congestive) and diastolic (congestive) heart failure; Z20.822 Contact with and (suspected) exposure to COVID-19; Z86.73 Personal history of transient ischemic attack (TIA), and cerebral infarction without residual deficits
CPT/HCPCS: 36415; 71045; 80053; 81001; 83880; 84484; 85025; 85379; 85610; 85730; 87426; 93005; 94640; 96365; 96375; 96376; 99285; C9803; J1644; J1940; J2930; U0003

== ENCOUNTER 2022-02-17 13:47 | Emergency (ER) | payer MEDICARE ==
[~2022-02-17] VITALS: Ht 162.6 cm; Wt 64.3 kg
[~2022-02-17 13:47] MED LIST changes: +metOLazone 5 MG TABLET PO ONE
--- NOTE | 2022-02-17 14:11 | PHYS DOC ---
Past History Past Medical History: Hypertension, Stroke, Other Additional Past Medical Histor: BREAST CANCER Past Surgical History: Other Additional Past Surgical Histo: BREAST, rigth foot Alcohol Use: Sober Adult General Chief Complaint Chief Complaint: SORE THROAT HPI HPI Patient is a 71-year-old female with a past medical history of CAD, stroke and COPD who presents with a chief complaint increased productive cough and some shortness of breath over the last couple of days. States she is still smoking cigarettes but is cutting back. Denies any recent travels, traumas, illness, fevers, chest pain, abdominal pain, nausea, vomiting, dysuria, hematuria, blood in stool or diarrhea. States he is taking all her medications as prescribed. States she does not use oxygen at home. Does endorse some new dyspnea on ex ertion, orthopnea some PND and edema. Also endorses productive cough. Review of Systems Review of Systems Review of systems otherwise unremarkable except noted in HPI Allergies Allergies Allergies Coded Allergies Type Severity Reaction Last Updated Verified No Known Drug Allergies 12/30/21 No Physical Exam Physical Exam Constitutional: Well developed, well nourished, no acute distress, non-toxic appearance. [] HENT: Normocephalic, atraumatic, bilateral external ears normal, oropharynx moist, no oral exudates, nose normal. [] Eyes: PERRLA, EOMI, conjunctiva normal, no discharge. [] Neck: Normal range of motion, no tenderness, supple, no stridor. [] Cardiovascular: Sinus tachycardia Lungs & Thorax: Tachypnea, productive cough, congestion, bilateral rhonchi with no wheeze Abdomen: soft, no tenderness, no masses, no pulsatile masses. [] Skin: Warm, dry, no erythema, no rash. [] Extremities: No tenderness, no cyanosis, no clubbing, ROM intact, no edema. [] Neurologic: Alert and oriented X 3, at baseline post stroke. Moving all extremities. Sensation normal. Responding appropriately. Able to sit, stand and walk Psychologic: Affect normal, judgement normal, mood normal. [] EKG EKG [] Radiology/Procedures Radiology/Procedures [] Heart Score C/O Chest Pain: No Risk Factors: Risk Factors: DM, Current or recent (<one month) smoker, HTN, HLP, family history of CAD, obesity. Risk Scores: Risk Factors: DM, Current or recent (<one month) smoker, HTN, HLP, family history of CAD, obesity. Course & Med Decision Making Course & Med Decision Making Patient is a 71-year-old female who presents with shortness of breath and productive cough over the last couple of days Vital signs notable for hypertension and oxygen saturations around 91% on room air. Physical exam noted above. EKG with a rate of 62, QRS of 90, QTc of 516, no STEMI. Given aspirin. DuoNeb. Steroids. Troponin elevated. BNP elevated. Mild KEM. CTA of the chest with no PE but dilation of the main pulmonary artery suggesting pulmonary hypertension and cardiomegaly with congestive heart failure and volume overload with bilateral small pleural effusions and some small upper abdominal ascites with diffuse body wall edema and severe trivessel CAD. [] Dragon Disclaimer Dragon Disclaimer This electronic medical record was generated, in whole or in part, using a voice recognition dictation system. Departure Departure: Impression: Primary Impression: COPD exacerbation Additional Impressions: Pulmonary edema Pleural effusion, bilateral Elevated troponin KEM (acute kidney injury) Congestive heart failure (CHF) Disposition: 02 SHORT TERM HOSPITAL Condition: STABLE Referrals: ZENAIDA ASTUDILLO MD (PCP) Problem Qualifiers MAXINE STYLES MD Feb 17, 2022 14:11
[2022-02-17] MEDS ORDERED: DEXAMETHASONE 4 MG TABLET PO ONE (14:30)
[2022-02-17] MEDS ORDERED: IPRATRPIUM/ALBUTEROL 0.5/2.5MG 3 ML NEBU. NEB ONE (14:30)
[2022-02-17 14:57] LABS: BASO % 1 % (0-3); EOS # 0.1 x10^3/uL (0.0-0.7); EOS % 1 % (0-3); HEMATOCRIT 41.2 % (36.0-47.0); HEMOGLOBIN 13.3 g/dL (12.0-15.5); LYMPH # 1.1 x10^3/uL (1.0-4.8); LYMPH % 14 % (24-48); MEAN CORPUSCULAR HEMOGLOBIN 31 pg (25-35); MEAN CORPUSCULAR HGB CONC 32 g/dL (31-37); MEAN CORPUSCULAR VOLUME 95 fL (79-100); MONO # 0.8 x10^3/uL (0.0-1.1); MONO % 10 % (0-9); NEUT # 5.9 x10^3uL (1.8-7.7); NEUT % 75 % (31-73); PLATELET COUNT 220 x10^3/uL (140-400); RED BLOOD COUNT 4.35 x10^6/uL (3.50-5.40); RED CELL DISTRIBUTION WIDTH 18.1 % (11.5-14.5); WHITE BLOOD COUNT 7.8 x10^3/uL (4.0-11.0)
[2022-02-17 15:06] LABS: CALCIUM 9.2 mg/dL (8.5-10.1); CREATININE 1.3 mg/dL (0.6-1.0); GFR 49.1; POTASSIUM 3.7 mmol/L (3.5-5.1)
[2022-02-17 15:19] LABS: ALBUMIN 3.4 g/dL (3.4-5.0); ALBUMIN/GLOBULIN RATIO 1.2 (1.0-1.7); MAGNESIUM 2.1 mg/dL (1.8-2.4); TOTAL BILIRUBIN 0.7 mg/dL (0.2-1.0); TOTAL PROTEIN 6.2 g/dL (6.4-8.2)
--- NOTE | 2022-02-17 15:28 | RAD ---
Study: XR CHEST 1V Indication: Shortness of breath. Comparison: 01/27/2022 Findings: Emphysematous changes with pleuroparenchymal scarring. Small bilateral pleural effusions and basilar predominant airspace opacities. Similar prominence of the cardiomediastinal silhouette and central va sculature. Aortic calcific atherosclerosis. Similar asymmetric apical opacification on the left relat maile to the prior. Osteopenia. Impression: Small right larger than left pleural effusions. Basilar predominant airspace opacities on a backgroun d of emphysema with pleuroparenchymal scarring. Congestive heart failure/volume overload is possible in the setting of cardiomediastinal silhouette enlargement. A superimposed infectious process is not excluded. Follow-up is needed to confirm improvement. Electronically signed by: SELMA CHASE MD (02/17/2022 3:26 PM) [email or web address]
[2022-02-17] MEDS ORDERED: ASPIRIN CHEWABLE 81 MG TABLET. ONE (15:31)
[2022-02-17] MEDS ORDERED: FUROSEMIDE 40 MG/4 ML VIAL IVP ONE ×3 (16:00→21:45)
[2022-02-17] MEDS ORDERED: ASPIRIN CHEWABLE 81 MG TABLET. PO ONE (16:00)
[2022-02-17] MEDS ORDERED: CONTRAST GIVEN. MC PRN (16:15)
[2022-02-17] MEDS ORDERED: IOHEXOL 350 MG/ML 100 ML VIAL. IV ONE (16:15)
--- NOTE | 2022-02-17 17:00 | RAD ---
Study: CT CHEST WITH CONTRAST - PULMONARY ANGIOGRAM History: Pulmonary embolus. Comparison: CT chest 10/12/2021 Technique: Helical CT of the chest performed after the administration of 100 cc Omnipaque 350 intrav enous contrast and timed for angiographic evaluation of the pulmonary arteries per PE protocol. Coron al and sagittal 3D MIP reformations were obtained. One or more of the following individualized dose reduction techniques were utilized for this examinat ion: 1. Automated exposure control 2. Adjustment of the mA and/or kV according to patient size 3. Use of iterative reconstruction technique. Findings: Pulmonary Arteries: No main, lobar or segmental pulmonary mild dilatation of the main pulmonary arter y measuring 3.3 cm transverse on image 57 series 4. Heart/Systemic Vasculature: Cardiomegaly. Extensive trivessel calcific coronary artery disease. Multi focal calcific atherosclerosis along the imaged aorta as well as involving the great vessels. Incompl ete evaluation for a dissection on account of bolus timing. Reflux of injected contrast into the hepa tic veins. Mediastinum: Mild prominence of a few lymph nodes favored reactive. Lungs: Moderate right and minimal left pleural effusions. Overlying atelectasis. Advanced emphysema w ith bullae formation. Interstitial edema to include thickening of the fissures. Neck/Axilla/Body Wall: Body wall edema. Upper Abdomen: Subcentimeter hypoattenuating focus within the upper right hepatic lobe is unchanged i n keeping with a benign process. Incompletely evaluated kidneys with a partially imaged focus of mine ralization at the upper pole on the left. Small volume ascites seen adjacent to the liver and minimal ly subjacent to the left hemidiaphragm. Bones: Scattered degenerative findings. Miscellaneous: None. IMPRESSION: 1. No main, lobar or segmental pulmonary embolism. Mild dilatation of the main pulmonary artery sugg esting chronically elevated pulmonary arterial pressures. 2. Enlarged heart with associated congestive heart failure/volume overload with moderate right and m inimal left pleural effusions, small volume upper abdominal ascites and diffuse body wall edema. 3. Chronic observations to include severe trivessel calcific coronary artery disease and advanced em physema. Electronically signed by: SELMA CHASE MD (02/17/2022 4:57 PM) [facility]
[2022-02-17] MEDS ORDERED: AZITHROMYCIN 250 MG TABLET. PO ONE (17:15)
[2022-02-17] MEDS ORDERED: HEPARIN 25,000UTS/250ML PREMIX 250 ML IV PRN (17:15)
[2022-02-17] MEDS ORDERED: HEPARIN for IV BOLUS 10,000 UNIT/10 ML VIAL. IV PRN (17:15)
[2022-02-17] MEDS ORDERED: HEPARIN for IV BOLUS 10,000 UNIT/10 ML VIAL. IV ONE (17:15)
[2022-02-17] MEDS ORDERED: IV NORMAL SALINE 50ML 50 ML ONE (17:38)
[2022-02-17] MEDS ORDERED: cefTRIAXone SODIUM 1 GM VIAL ONE (17:38)
[2022-02-17 18:22] LABS: BACTERIA,URINE FEW /HPF (0-FEW); CLARITY,URINE CLEAR; COLOR,URINE YELLOW; GLUCOSE,URINE NEG (NEG); NITRITE,URINE NEG (NEG); RBC,URINE >40 /HPF (0-2); SQUAMOUS EPITHELIAL CELL,UR MOD /LPF; UROBILINOGEN,URINE 0.2 mg/dL (0.2 mg/dL); YEAST,URINE PRESENT /HPF
--- NOTE | 2022-02-17 19:10 | EKG ---
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
[2022-02-17] MEDS ORDERED: POTASSIUM CHLORIDE 20 MEQ TABLET.ER. PO ONE (21:45)
[2022-02-17] MEDS ORDERED: ENOXAPARIN ** NOTE DOSE ** SYRINGE SQ ONE (21:45)
[2022-02-17 21:56] VITALS: BP 157/81
--- NOTE | 2022-02-17 22:05 | EKG ---
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
== END 2022-02-17 22:07 | disposition short-term general hospital (02) ==
LOC: ER 13:47
DX: N17.9 Acute kidney failure, unspecified (principal); J44.1 Chronic obstructive pulmonary disease with (acute) exacerbation; I11.0 Hypertensive heart disease with heart failure; I50.1 Left ventricular failure, unspecified; J90 Pleural effusion, not elsewhere classified; R77.8 Other specified abnormalities of plasma proteins; Z20.822 Contact with and (suspected) exposure to COVID-19; Z86.73 Personal history of transient ischemic attack (TIA), and cerebral infarction without residual deficits
CPT/HCPCS: 36415; 71045; 71275; 80053; 81001; 83735; 83880; 84484; 85025; 85379; 85610; 85730; 87086; 87186; 87426; 93005; 94640; 96365; 96372; 96375; 96376; 99285; C9803; J0696; J1650; J1940; J8540; Q9967; U0003

== ENCOUNTER → 2022-03-04 | Outpatient (CLI) | payer MEDICARE ==
[2022-02-17 21:56] VITALS: BP 157/81
[~2022-03-04] MED LIST changes: -metOLazone 5 MG TABLET PO ONE
[2022-03-04 16:41] LABS: CALCIUM 8.8 mg/dL (8.5-10.1); CREATININE 1.2 mg/dL (0.6-1.0); GFR 53.9; POTASSIUM 3.6 mmol/L (3.5-5.1)
== END ==
LOC: SPEC 16:00
PROVIDERS: ATTEND Internal Medicine Cardiovascular Disease
DX: I11.0 Hypertensive heart disease with heart failure (principal); I50.9 Heart failure, unspecified
CPT/HCPCS: 36415; 80048; 83880

== ENCOUNTER → 2022-03-08 | Outpatient (CLI) | payer MEDICARE ==
[2022-02-17 21:56] VITALS: BP 157/81
--- NOTE | 2022-03-08 16:09 | RAD ---
EXAM: XR EXAM OF ANKLE_RIGHT 3VIEWS 03/08/2022 3:07 PM CLINICAL INDICATION: Post surgery right ankle COMPARISON: Right ankle radiograph 11/30/2021 TECHNIQUE: 3 views of the right ankle FINDINGS: There is a distal fibular lateral plate and screw fixation device, 2 interfragmentary scre ws in the distal fibula, 2 syndesmotic screws, and 2 medial malleolar screws. Mild lucencies surround ing the syndesmotic screws is unchanged. No new hardware abnormality. There is some persistent fractu re lucency across the medial malleolar fracture. The lateral malleolar fracture and posterior malleol ar fracture are not well visualized, likely healed. The talar dome is intact. There is mild disuse os teopenia. Persistent soft tissue swelling. IMPRESSION: 1. Internally fixed medial and lateral malleolar fractures and syndesmotic fixation. Persistent lucen cy surrounding the syndesmotic screws may indicate loosening. 2. There is persistent lucency across the medial malleolar fracture, which may indicate incomplete he aling. Electronically signed by: Martha Fox MD (03/08/2022 4:07 PM) [id number]
== END ==
LOC: RAD 14:45
PROVIDERS: ATTEND Podiatrist
DX: S82.851D Displaced trimalleolar fracture of right lower leg, subsequent encounter for closed fracture with routine healing (principal); M79.89 Other specified soft tissue disorders; M85.871 Other specified disorders of bone density and structure, right ankle and foot; X58.XXXD Exposure to other specified factors, subsequent encounter
CPT/HCPCS: 73610

== ENCOUNTER → 2022-03-25 | Outpatient (CLI) | payer MEDICARE ==
[2022-03-25 19:44] LABS: CALCIUM 8.6 mg/dL (8.5-10.1); CREATININE 1.4 mg/dL (0.6-1.0); GFR 45.1; POTASSIUM 3.2 mmol/L (3.5-5.1)
== END ==
LOC: SPEC 18:01
PROVIDERS: ATTEND Internal Medicine Cardiovascular Disease
DX: I11.0 Hypertensive heart disease with heart failure (principal); I50.9 Heart failure, unspecified
CPT/HCPCS: 36415; 80048; 83880

== ENCOUNTER → 2022-04-04 | Outpatient (CLI) | payer MEDICARE ==
[2022-04-04 15:57] LABS: CALCIUM 9.1 mg/dL (8.5-10.1); CREATININE 1.1 mg/dL (0.6-1.0); GFR 59.6; POTASSIUM 3.4 mmol/L (3.5-5.1)
== END ==
LOC: SPEC 15:36
PROVIDERS: ATTEND Internal Medicine Cardiovascular Disease
DX: I50.9 Heart failure, unspecified (principal)
CPT/HCPCS: 36415; 80048